=== PATIENT | female | born 1990 | race Caucasian/White ===

== ENCOUNTER 2016-12-04 15:58 | Emergency (ER) | payer OTHER ==
[2016-12-04 16:17] VITALS: BP 118/76; PULSE 75; RESP 18; TEMP 98
[2016-12-04] MEDS ORDERED: diphenhydrAMINE 50 MG CAP PO STA (16:55)
[2016-12-04] MEDS ORDERED: predniSONE 50 MG TAB PO STA (16:55)
--- NOTE | 2016-12-04 16:58 | ED ---
General Adult HPI - General Chief complaint: Extremity Problem,Nontraumatic Stated complaint: arm & chest pain Time Seen by Provider: 12/04/16 16:44 Source: patient, RN notes reviewed Mode of arrival: ambulatory - History of Present Illness Initial comments: Patient is a 26-year-old female who presents emergency room today with a chief complaint of increased pain to the right arm and right side of her chest. She states worse with movements. She does admit that she was at [facility] yesterday for headache. States she had an IV placed in this arm. States woke up this morning she felt fine she took her to school she noticed some redness to the posterior aspect of the right hand. She states this progressed down worse going up right forearm. States she takes infection to her family doctor advised to come to the emergency room to rule out possible blood clot. She states she's feeling this pain going to the right shoulder right side of her chest. She states worse with movements. Denies any other complaints or associated symptoms. Patient denies any recent fever, chills, shortness of breath, back pain, abdominal pain, nausea or vomiting, numbness or tingling, dysuria or hematuria, constipation or diarrhea, headaches or visual changes, or any other complaints. - Related Data Home Medications Medication Instructions Recorded Confirmed Acetaminophen Tab [Tylenol Tab] 650 mg PO Q6H PRN 12/04/16 12/04/16 Verapamil HCl [Verapamil ER] 120 mg PO DAILY@199912/04/16 12/04/16 Previous Rx's Medication Instructions Recorded Cephalexin [Keflex] 500 mg PO Q12HR 10 Days 12/04/16 diphenhydrAMINE [Benadryl] 1 - 2 tab PO Q6HR PRN #30 capsule 12/04/16 Allergies Allergy/AdvReac Type Severity Reaction Status Date / Time amoxicillin Allergy Unknown Verified 12/04/16 16:34 barium sulfate Allergy Rash/Hives Verified 12/04/16 16:34 clindamycin Allergy Anaphylaxis Verified 12/04/16 16:34 doxycycline Allergy Anaphylaxis Verified 12/04/16 16:34 erythromycin base Allergy Anaphylaxis Verified 12/04/16 16:34 [Erythromycin Base] Penicillins Allergy Anaphylaxis Verified 12/04/16 16:34 sulfamethoxazole Allergy Anaphylaxis Verified 12/04/16 16:34 [From Bactrim] trimethoprim [From Bactrim] Allergy Anaphylaxis Verified 12/04/16 16:34 Review of Systems ROS Statement: Those systems with pertinent positive or pertinent negative responses have been documented in the HPI. ROS Other: All systems not noted in ROS Statement are negative. Past Medical History Past Medical History: Asthma, GERD/Reflux, Neurologic Disorder Additional Past Medical History / Comment(s): hiatal hernia, MIGRAINES History of Any Multi-Drug Resistant Organisms: None Reported Past Surgical History: Section, Cholecystectomy, Hernia Repair, Tubal Ligation Additional Past Surgical History / Comment(s): abscess removed from neck Past Anesthesia/Blood Transfusion Reactions: Motion Sickness Additional Past Anesthesia/Blood Transfusion Reaction / Comment(s): STATES SHE WOKE UP DURING CHOLESCYSTECTOMY Past Psychological History: No Psychological Hx Reported Smoking Status: Current every day smoker Past Alcohol Use History: None Reported Past Drug Use History: None Reported - Past Family History Mother Family Medical History: No Reported History Father Additional Family Medical History / Comment(s): multiple sclerosis General Exam - General Exam Comments Initial Comments: General: The patient is awake and alert, in no distress, and does not appear acutely ill. Eye: Pupils are equal, round and reactive to light, extra-ocular movements are intact. No nystagmus. There is normal conjunctiva bilaterally. No signs of icterus. Ears, nose, mouth and throat: There are moist mucous membranes and no oral lesions. Neck: The neck is supple, there is no tenderness or JVD. Cardiovascular: There is a regular rate and rhythm. No murmur, rub or gallop is appreciated. Respiratory: Lungs are clear to auscultation, respirations are non-labored, breath sounds are equal. No wheezes, stridor, rales, or rhonchi. Musculoskeletal: Normal ROM, no tenderness. Strength 5/5. Sensation intact. Pulses equal bilaterally 2+. Neurological: A&O x 3. CN II-XII intact, There are no obvious motor or sensory deficits. Coordination appears grossly intact. Speech is normal. Skin: Rash located to the posterior aspect of right hand and right forearm. Psychiatric: Cooperative, appropriate mood & affect, normal judgment. Course Vital Signs 12/04/16 16:13 Temperature 98 F Pulse Rate 75 Respiratory 18 Rate Blood Pressure 118/76 O2 Sat by Pulse 100 Oximetry Medical Decision Making - Medical Decision Making Patient's ultrasound negative for any evidence of DVT. Patient's chest x-ray reviewed and are unremarkable. Case discussed in detail with attending physician Dr. Castro. Patient will be discharged home advised to continue with Benadryl for possible ALLERGIC reaction or contact dermatitis. Patient will be given a prescription for Keflex which she states she's had in the past. Was discussed about signs symptoms of a cellulitis. Advised to begin antibiotic symptoms increase or worsen. Advised follow-up family doctor over the next 2 days return if any symptoms increase or worsen or for any other concerns. Patient states understanding and is in agreement with this plan. Disposition Clinical Impression: Allergic reaction Disposition: HOME SELF-CARE Condition: Good Instructions: Contact Dermatitis (ED) Additional Instructions: Please use medication as discussed. Please follow-up with family doctor in the next 2 days of symptoms have not improved. Please return to emergency room if the symptoms increase or worsen or for any other concerns. Prescriptions: Cephalexin [Keflex] 500 mg PO Q12HR 10 Days diphenhydrAMINE [Benadryl] 1 - 2 tab PO Q6HR PRN #30 capsule PRN Reason: Allergic Reaction Time of Disposition: 18:37
--- NOTE | 2016-12-04 18:39 | XR ---
EXAMINATION TYPE: XR chest 2V DATE OF EXAM: 12/04/2016 5:57 PM COMPARISON: 10/04/2015 HISTORY: Chest pain TECHNIQUE: Frontal and lateral views of the chest are obtained. FINDINGS: Heart and mediastinum are normal. Lungs are clear. Diaphragm is normal. Bony thorax is int act. IMPRESSION: Normal chest. No change.
--- NOTE | 2016-12-04 18:41 | US ---
EXAMINATION TYPE: US venous doppler duplex UE RT DATE OF EXAM: 12/04/2016 6:15 PM COMPARISON: NONE CLINICAL HISTORY: rash noticed this am on right arm, recent IV site in antecubital fossa yesterday, n o h/o dvt . SIDE PERFORMED: Right Right Arm: Appears negative for DVT There is patency of the jugular, subclavian, axillary, brachial, radial and ulnar veins. There is pat ency of the cephalic and basilic veins. IMPRESSION: Normal exam. No evidence of deep venous thrombosis in the right arm.
== END 2016-12-04 18:47 | disposition home or self-care (01) ==
LOC: EC 15:58
DX: T78.40XA Allergy, unspecified, initial encounter (principal); M79.601 Pain in right arm; X58.XXXA Exposure to other specified factors, initial encounter; Z79.899 Other long term (current) drug therapy; Z88.0 Allergy status to penicillin; Z88.1 Allergy status to other antibiotic agents
CPT/HCPCS: 99285 ×2; 93005; 71020; 93965; 93971; J7512

== ENCOUNTER 2017-03-01 11:49 | Emergency (ER) | payer OTHER ==
[2017-03-01 12:19] VITALS: PULSE 80
[2017-03-01] MEDS ORDERED: HYDROcodone/APAP 7.5-325MG 1 EACH TAB PO ONE (13:00)
--- NOTE | 2017-03-01 13:07 | ED ---
Abdominal Pain HPI - General Chief Complaint: Abdominal Pain Stated Complaint: abd pain,back pain Time Seen by Provider: 03/01/17 12:51 Source: patient, RN notes reviewed Mode of arrival: ambulatory Limitations: no limitations - History of Present Illness Initial Comments: 18-year-old female presents emergency Department with chief complaint of left lower quadrant abdominal pain. Patient states pain has been going on for several years worse recently. Patient states she seen at [facility] and was told that there was nothing wrong and which she did lab work, imaging and urinalysis. Patient states that they only gave her tramadol and states is not helping. She states that she called her CLINICAL CARE MANAGER's office in which her doctor Dr. Ang is not in today advised to come to the hospital here. Patient denies any nausea, vomiting, diarrhea constipation. Denies any hematemesis copremesis. Denies any melena or hematochezia. Patient denies fever, chills, dysuria. Patient states that she's had some vaginal spotting though she is not due for her period. Patient denies any vaginal discharge. Patient states she' s had a prior tubal ligation, hernia surgery, - Related Data Previous Rx's Medication Instructions Recorded Hydrocodone/Acetaminophen [[place] 1 tab PO Q6HR PRN #15 tab 03/01/17 5-325] Allergies Allergy/AdvReac Type Severity Reaction Status Date / Time amoxicillin Allergy Unknown Verified 03/01/17 13:23 barium sulfate Allergy Rash/Hives Verified 03/01/17 13:23 clindamycin Allergy Anaphylaxis Verified 03/01/17 13:23 doxycycline Allergy Anaphylaxis Verified 03/01/17 13:23 erythromycin base Allergy Anaphylaxis Verified 03/01/17 13:23 [Erythromycin Base] Penicillins Allergy Anaphylaxis Verified 03/01/17 13:23 sulfamethoxazole Allergy Anaphylaxis Verified 03/01/17 13:23 [From Bactrim] trimethoprim [From Bactrim] Allergy Anaphylaxis Verified 03/01/17 13:23 Review of Systems ROS Statement: Those systems with pertinent positive or pertinent negative responses have been documented in the HPI. ROS Other: All systems not noted in ROS Statement are negative. Past Medical History Past Medical History: Asthma, GERD/Reflux, Neurologic Disorder Additional Past Medical History / Comment(s): hiatal hernia, MIGRAINES History of Any Multi-Drug Resistant Organisms: None Reported Past Surgical History: Section, Cholecystectomy, Hernia Repair, Tubal Ligation Additional Past Surgical History / Comment(s): abscess removed from neck Past Anesthesia/Blood Transfusion Reactions: Motion Sickness Additional Past Anesthesia/Blood Transfusion Reaction / Comment(s): STATES SHE WOKE UP DURING CHOLESCYSTECTOMY Past Psychological History: No Psychological Hx Reported Smoking Status: Current every day smoker Past Alcohol Use History: None Reported Past Drug Use History: None Reported - Past Family History Mother Family Medical History: No Reported History Father Additional Family Medical History / Comment(s): multiple sclerosis General Exam Limitations: no limitations General appearance: alert, in no apparent distress Respiratory exam: Present: normal lung sounds bilaterally. Absent: respiratory distress, wheezes, rales, rhonchi, stridor Cardiovascular Exam: Present: regular rate, normal rhythm, normal heart sounds. Absent: systolic murmur, diastolic murmur, rubs, gallop, clicks GI/Abdominal exam: Present: soft, tenderness (Mild to moderate left lower quadrant tenderness), normal bowel sounds. Absent: distended, guarding, rebound , rigid External exam: Present: normal external exam, other (Exam performed with EVERETTE Linda) Speculum exam: Present: vaginal discharge (Minimal white discharge) By manual exam: Present: normal by manual exam Back exam: Absent: CVA tenderness (R), CVA tenderness (L) Neurological exam: Present: alert Skin exam: Present: warm, dry, intact, normal color. Absent: rash Course Vital Signs 03/01/17 12:18 Temperature 98.7 F Pulse Rate 80 Respiratory 20 Rate Blood Pressure 132/67 O2 Sat by Pulse 99 Oximetry Medical Decision Making - Medical Decision Making 26-year-old female presented for left lower quadrant abdominal pain. Patient's labs reviewed from previous ER visits showed no acute abnormality. Patient ultrasound does not show any evidence of torsion or ovarian cyst. OB oncologist currently is concerned about possible endometriosis with her. Patient has seen them within last 2 weeks. Patient was referred back to her OB/ [employer]. Patient will be discharged from the emergency department. - Lab Data Lab Results 03/01/17 03/01/17 Range/Units 13:12 13:12 Urine Color Yellow Urine Appearance Cloudy H (Clear) Urine pH 5.5 (5.0-8.0) Ur Specific [place] 1.016 (1.001-1.035) Urine Protein Negative (Negative) Urine Glucose (UA) Negative (Negative) Urine Ketones Negative (Negative) Urine Blood Negative (Negative) Urine Nitrite Negative (Negative) Urine Bilirubin Negative (Negative) Urine Urobilinogen <2.0 (<2.0) mg/dL Ur Leukocyte Esterase Trace H (Negative) Urine RBC 4 (0-5) /hpf Urine WBC 2 (0-5) /hpf Ur Squamous Epith Cells 4 (0-4) /hpf Hyaline Casts 1 (0-2) /lpf Urine Mucus Rare H (None) /hpf Urine HCG, Qual Not Detected (Not Detectd) Disposition Clinical Impression: Pelvic pain, Abdominal pain Disposition: HOME SELF-CARE Condition: Stable Instructions: Pelvic Pain in Women (ED) Additional Instructions: Please return to the Emergency Department if symptoms worsen or any other concerns. Prescriptions: Hydrocodone/Acetaminophen [[place] 5-325] 1 tab PO Q6HR PRN #15 tab PRN Reason: Pain Time of Disposition: 14:57
[2017-03-01 13:29] LABS: Appearance,Urine Cloudy (Clear); Bilirubin,Urine Negative (Negative); Glucose,Urine (UA) Negative (Negative); Ketones,Urine Negative (Negative); Leukocyte Esterase,Urine Trace (Negative); Mucus,Urine Rare /hpf; Nitrite,Urine Negative (Negative); PH, Urine 5.5 (5.0-8.0); Particle Count 7953; Protein,Urine Negative (Negative); RBC,Urine 4 /hpf (0-5); Specific Gravity,Urine 1.016 (1.001-1.035); Squamous Epithelial Cell,Urine 4 /hpf (0-4); UA Billing (MACRO vs. MICRO) MICRO; Urobilinogen,Urine <2.0 mg/dL (<2.0); WBC,Urine 2 /hpf (0-5)
--- NOTE | 2017-03-01 14:26 | US ---
EXAMINATION TYPE: US transvaginal DATE OF EXAM: 03/01/2017 2:15 PM COMPARISON: 01/08/2016 pelvic ultrasound CLINICAL HISTORY: Pain. TECHNIQUE: Transvaginal (TV) pelvic ultrasound Date of LMP: 02/19/2017 EXAM MEASUREMENTS: Uterus: 7.9 x 4.0 x 5.5 cm Endometrial Stripe: 0.5 cm Right Ovary: 2.6 x 1.6 x 2.4 cm Left Ovary: 3.0 x 1.8 x 2.7 cm 1. Uterus: retroflexed 2. Endometrium: wnl 3. Right Ovary: follicle 4. Left Ovary: follicle Spectral, color and waveform doppler imaging shows good arterial and venous flow within the ovaries ; . 5. Bilateral Adnexa: wnl 6. Posterior cul-de-sac: wnl No gross abnormalities identified IMPRESSION: No significant finding is seen to account for patient's symptoms.
[2017-03-01 15:24] VITALS: BP 114/73; RESP 18; TEMP 97.6
== END 2017-03-01 15:23 | disposition home or self-care (01) ==
LOC: EC 11:49
DX: R10.2 Pelvic and perineal pain (principal); M54.9 Dorsalgia, unspecified; Z88.0 Allergy status to penicillin; Z88.1 Allergy status to other antibiotic agents; Z88.2 Allergy status to sulfonamides; Z88.8 Allergy status to other drugs, medicaments and biological substances; F17.200 Nicotine dependence, unspecified, uncomplicated; Z98.51 Tubal ligation status; Z98.890 Other specified postprocedural states; Z90.49 Acquired absence of other specified parts of digestive tract
CPT/HCPCS: 76830; 81001; 81025; 87070; 87205; 87491; 87591; 87808; 93975; 99284

== ENCOUNTER → 2017-06-02 | Outpatient (CLI) | payer OTHER ==
[2017-06-02 09:15] LABS: Basophils % (A) 1 %; CH 28.9; CHCM 33.9; Eosinophils # (A) 0.2 k/uL (0-0.7); Eosinophils % (A) 3 %; HDW 2.58; HGB 13.4 gm/dL (11.4-16.0); Luc # (Auto) 0.25; Luc % (Auto) 4; Lymphocytes % (A) 29 %; MCH 30.1 pg (25.0-35.0); MCHC 35.2 g/dL (31.0-37.0); MCV 85.6 fL (80.0-100.0); Mean Platelet Volume 6.8; Monocytes # (A) 0.3 k/uL (0-1.0); Monocytes % (A) 5 %; Neutrophils # (A) 4.1 k/uL (1.3-7.7); Neutrophils % (A) 59 %; RBC 4.44 m/uL (3.80-5.40); RDW 12.3 % (11.5-15.5)
== END | disposition home or self-care (01) ==
LOC: LABPAT 08:41
PROVIDERS: ATTEND Obstetrics & Gynecology
DX: Z01.812 Encounter for preprocedural laboratory examination (principal)
CPT/HCPCS: 85025

== ENCOUNTER 2017-06-10 06:28 | Day surgery (SDC) | payer OTHER ==
[2017-06-03 09:14] VITALS: BMI 33.6
--- NOTE | 2017-06-09 11:31 | P.HPOB ---
History of Present Illness H&P Date: 06/09/17 Chief Complaint: pelvic pain 26 year old presents for diagnostic laparoscopy due to pelvic pain. The pain is worse with sex and with her period. OCPs did help for a little while but then the pain returned. Review of Systems All systems: negative Constitutional: Denies chills, Denies fever Eyes: denies blurred vision, denies pain Ears, nose, mouth and throat: Denies headache, Denies sore throat Cardiovascular: Denies chest pain, Denies shortness of breath Respiratory: Denies cough Gastrointestinal: Denies abdominal pain, Denies diarrhea, Denies nausea, Denies vomiting Genitourinary: Denies dysuria, Denies hematuria Musculoskeletal: Denies myalgias Integumentary: Denies pruritus, Denies rash Neurological: Denies numbness, Denies weakness Psychiatric: Denies anxiety, Denies depression Endocrine: Denies fatigue, Denies weight change Past Medical History Past Medical History: Asthma, Neurologic Disorder Additional Past Medical History / Comment(s): MIGRAINES History of Any Multi-Drug Resistant Organisms: None Reported Past Surgical History: Section, Cholecystectomy, Hernia Repair, Tubal Ligation Additional Past Surgical History / Comment(s): abscess removed from neck, sonu fundiplication Past Anesthesia/Blood Transfusion Reactions: Motion Sickness Additional Past Anesthesia/Blood Transfusion Reaction / Comment(s): STATES SHE WOKE UP DURING CHOLESCYSTECTOMY Smoking Status: Current every day smoker - Past Family History Mother Family Medical History: No Reported History Father Additional Family Medical History / Comment(s): multiple sclerosis Medications and Allergies Home Medications Medication Instructions Recorded Confirmed Type Albuterol Inhaler [Ventolin Hfa 1 - 2 puff INHALATION Q6HR PRN 06/03/17 History Inhaler] Allergies Allergy/AdvReac Type Severity Reaction Status Date / Time amoxicillin Allergy Unknown Verified 06/03/17 08:50 barium sulfate Allergy Rash/Hives Verified 06/03/17 08:50 clindamycin Allergy Anaphylaxis Verified 06/03/17 08:50 doxycycline Allergy Anaphylaxis Verified 06/03/17 08:50 erythromycin base Allergy Anaphylaxis Verified 06/03/17 08:50 [Erythromycin Base] Penicillins Allergy Anaphylaxis Verified 06/03/17 08:50 Sulfa (Sulfonamide Allergy Anaphylaxis Verified 06/03/17 08:54 Antibiotics) sulfamethoxazole Allergy Anaphylaxis Verified 06/03/17 08:50 [From Bactrim] trimethoprim [From Bactrim] Allergy Anaphylaxis Verified 06/03/17 08:50 Exam Osteopathic Statement: *. No significant issues noted on an osteopathic structural exam other than those noted in the History and Physical/Consult. Heart: RRR Lungs: CTAB Abdomen: soft, nontender Extremeties: neg george's Assessment and Plan (1) Pelvic pain Status: Acute Plan: 1. diagnostic laparoscopy
[~2017-06-10 06:28] MED LIST: DEXAMETHASONE SOD PHOSPHATE 10 MG/ML 1 ML VIAL IV ONE; LACTATED RINGERS 1,000 ML IV SCH; LIDOCAINE 1% 20 ML VIAL (10MG/ML) FOR IV START INTRADERMA PRN; ONDANSETRON 4 MG/2 ML VIAL IVP ONE; Pre Op ABX Message 1 EACH MISC MISCELLANE ONE; SCOPOLAMINE 1.5MG/72HR PATCH TRANSDERM ONE
[2017-06-10] MEDS ORDERED: GLYCOPYRROLATE 0.2 MG/ML 2 ML VIAL ONE (07:29)
[2017-06-10] MEDS ORDERED: PROPOFOL 10 MG/ML 20 ML VIAL IV ONE (07:29)
[2017-06-10] MEDS ORDERED: MIDAZOLAM 2 MG/2 ML VIAL ONE (07:29)
[2017-06-10] MEDS ORDERED: ROCURONIUM BROMIDE 10 MG/ML 10 ML VIAL IV ONE (07:29)
[2017-06-10] MEDS ORDERED: fentaNYL (PF) 50 MCG/ML 2 ML AMP ONE (07:29)
[2017-06-10] MEDS ORDERED: ePHEDrine 50 MG/ML 1 ML AMP ONE (07:29)
[2017-06-10] MEDS ORDERED: LIDOCAINE 1% INJ 10MG/ML (20 ML MDV) ONE (07:29)
[2017-06-10] MEDS ORDERED: NEOSTIGMINE 1 MG/ML 10 ML VIAL ONE (07:29)
[2017-06-10] MEDS ORDERED: SUCCINYLCHOLINE CHLORIDE 100 MG/5 ML SYR IV ONE (07:29)
[2017-06-10] MEDS ORDERED: BUPIVACAINE (PF) 0.25% 30 ML VIAL SQ ONE ×3 (07:54)
[2017-06-10] MEDS ORDERED: CELLULOSE,OXIDIZED 1 EACH EACH MISCELLANE ONE (08:05)
--- NOTE | 2017-06-10 08:32 | P.OP ---
Date of Procedure: 06/10/17 Preoperative Diagnosis: pelvic pain Postoperative Diagnosis: pelvic pain pelvic adhesions, omental adhesions Procedure(s) Performed: operative laparoscopy with lysis of adhesions and placement of intercede Implants: Anesthesia: ALICIA Surgeon: Emerita Ang Estimated Blood Loss (ml): 5 IV fluids (ml): 500 Urine output (ml): 20 Pathology: none sent Condition: stable Disposition: PACU Indications for Procedure: Operative Findings: Patient had minimal amount of omental adhesions on the left pelvis, she had filmy adhesions surrounding her left ovary and fallopian 2, she had dense adhesions connecting her anterior uterine wall to the anterior pelvic wall. Description of Procedure: Patient is taken the operating room where general anesthesia was obtained without difficulty. She is prepped and draped in normal sterile fashion dorsal lithotomy position, legs placed in the Arvin stirrups. Bladder was drained of all urine. [place] speculum placed in the vagina the anterior lip the cervix was grasped with single-tooth tenaculum. The uterus was sounded to 11 cm. A kroner manipulator was placed. Attention was then turned to the abdomen and gloves were changed. A 10 mm infraumbilical incision was made the scalpel and a 10 mm optical trocar was placed under direct visualization. Survey of the pelvis revealed some omental adhesions to the left pelvic anterior wall, some filmy adhesions around the left ovary and fallopian tube, some filmy and dense adhesions connecting the anterior uterus to the anterior pelvic wall. The right fallopian tube and ovary appeared normal. A 5 mm incision was made in the right side of her abdomen and a [place] LigaSure was introduced. The omental adhesions were taken down first and hemostasis was assured. The filmy adhesions were taken down around the left ovary and fallopian tube. These were easily freed. The filmy adhesions along the right side of the anterior uterus were taken down easily. The more dense adhesions along the left anterior wall of the uterus were started to be taken down using the [place] LigaSure. There is taken down about fpc but to ensure that I did not enter the bladder I stopped there. Interceed was then introduced and placed over the anterior part of the uterus to prevent these adhesions from reoccurring. All instruments removed from the abdomen and vagina. The 10 mm incision was closed first with 0 Vicryl and the fascial layer and 4-0 Vicryl subcuticular fashion. The 5 mm incision was closed with 4-0 Vicryl and a second procedure fashion. Patient tolerated the procedure well, sponge and instrument counts are correct 2 and she was taken to recovery room in stable condition.
[2017-06-10 08:50] VITALS: TEMP 96.8
[2017-06-10] MEDS: HYDROmorphone 1 MG/ML 1 ML SYRINGE IVP PRN ×2 (08:51→08:56)
[2017-06-10] MEDS ORDERED: KETOROLAC 30 MG/ML 1 ML VIAL IVP ONE (08:56)
[2017-06-10] MEDS ORDERED: HYDROcodone/APAP 5-325MG 1 EACH TAB PO ONE (09:54)
[2017-06-10 10:13] VITALS: BP 110/68; PULSE 72; RESP 16
== END 2017-06-10 10:39 | disposition home or self-care (01) ==
LOC: OR 06:28
PROVIDERS: ATTEND Obstetrics & Gynecology
DX: N73.6 Female pelvic peritoneal adhesions (postinfective) (principal); K66.0 Peritoneal adhesions (postprocedural) (postinfection)
CPT/HCPCS: 81025; 49329; J2250; J1100; J2710; J2405; J2001; J3010; J1885; J1170; J0330; J2704

== ENCOUNTER 2017-06-14 09:59 | Emergency (ER) | payer OTHER ==
[2017-06-14 10:07] VITALS: PULSE 83
[2017-06-14] MEDS ORDERED: KETOROLAC 30 MG/ML 1 ML VIAL IVP STA (10:26)
[2017-06-14 11:14] LABS: Basophils % (A) 0 %; CH 29.1; CHCM 34.1; Eosinophils # (A) 0.3 k/uL (0-0.7); Eosinophils % (A) 4 %; HCT 39.5 % (34.0-46.0); HDW 2.48; HGB 13.7 gm/dL (11.4-16.0); Luc # (Auto) 0.17; Luc % (Auto) 2; Lymphocytes % (A) 25 %; MCH 29.8 pg (25.0-35.0); MCHC 34.8 g/dL (31.0-37.0); MCV 85.6 fL (80.0-100.0); Mean Platelet Volume 6.7; Monocytes # (A) 0.4 k/uL (0-1.0); Monocytes % (A) 4 %; Neutrophils # (A) 5.2 k/uL (1.3-7.7); Neutrophils % (A) 65 %; RBC 4.62 m/uL (3.80-5.40); RDW 12.5 % (11.5-15.5); WBC 8.1 k/uL (3.8-10.6); WBC (Perox) 8.27
[2017-06-14 11:22] LABS: Appearance,Urine Clear (Clear); Bilirubin,Urine Negative (Negative); Glucose,Urine (UA) Negative (Negative); Ketones,Urine Negative (Negative); Leukocyte Esterase,Urine Trace (Negative); Nitrite,Urine Negative (Negative); Particle Count 2026; Protein,Urine Negative (Negative); RBC,Urine 2 /hpf (0-5); Specific Gravity,Urine 1.013 (1.001-1.035); Squamous Epithelial Cell,Urine 5 /hpf (0-4); UA Billing (MACRO vs. MICRO) MICRO; Urobilinogen,Urine <2.0 mg/dL (<2.0); WBC,Urine 3 /hpf (0-5)
[2017-06-14] MEDS ORDERED: ONDANSETRON 4 MG/2 ML VIAL IVP STA (11:24)
[2017-06-14 11:26] LABS: ALT 33 U/L (9-52); AST 23 U/L (14-36); Alkaline Phosphatase 68 U/L (38-126); Amylase 31 U/L (30-110); Anion Gap 6 mmol/L; Blood Urea Nitrogen 9 mg/dL (7-17); Calcium 9.3 mg/dL (8.4-10.2); Carbon Dioxide 25 mmol/L (22-30); Chloride 108 mmol/L (98-107); Glucose 80 mg/dL (74-99); Non-African American GFR(MDRD) >60 (>60 ml/min/1.73 sqM); Potassium 3.9 mmol/L (3.5-5.1); Sodium 139 mmol/L (137-145); Total Bilirubin 0.3 mg/dL (0.2-1.3); Total Protein 6.4 g/dL (6.3-8.2)
[2017-06-14 11:28] VITALS: BP 115/71; RESP 16; TEMP 98.4
--- NOTE | 2017-06-14 11:52 | XR ---
EXAMINATION TYPE: XR chest 2V DATE OF EXAM: 06/14/2017 COMPARISON: 12/04/2016 TECHNIQUE: PA and lateral views submitted. HISTORY: Pain FINDINGS: The lungs are clear and there is no pneumothorax, pleural effusion, or focal pneumonia. Surgical cl ips in the gallbladder fossa. No overt failure. IMPRESSION: 1. No acute process.
--- NOTE | 2017-06-14 13:45 | ED ---
General Adult HPI - General Chief complaint: Abdominal Pain Stated complaint: post op complications Time Seen by Provider: 06/14/17 10:25 Source: patient, RN notes reviewed, old records reviewed Mode of arrival: wheelchair - History of Present Illness Initial comments: 26 yo female presenting with chief complaint of sore throat, right ear pain, and generalized abdominal pain. Patient is 4 days postop laparoscopy with lysis of adhesions. Patient states she's had a sore throat, fever of 101 last night and chills. She denies vomiting or diarrhea. States she's had some mild nausea. Denies rhinorrhea, denies vaginal discharge, denies dysuria or urinary frequency, denies cough. States she's had a sore throat and right ear pain. Patient is currently taking [place] 5 mg every 6 hours with some residual pain between doses. - Related Data Home Medications Medication Instructions Recorded Confirmed Albuterol Inhaler [Ventolin Hfa 1 - 2 puff INHALATION Q6HR PRN 06/03/17 06/14/17 Inhaler] Previous Rx's Medication Instructions Recorded HYDROcodone/APAP 5-325MG [[place] 1 - 2 tab PO Q6HR PRN #30 tab 06/10/17 5-325] Ibuprofen [Motrin] 600 mg PO Q6HR PRN #30 tab 06/10/17 HYDROcodone/APAP 5-325MG [[place] 1 tab PO Q4HR PRN #24 tab 06/14/17 5-325] Allergies Allergy/AdvReac Type Severity Reaction Status Date / Time amoxicillin Allergy Unknown Verified 06/14/17 10:26 barium sulfate Allergy Rash/Hives Verified 06/14/17 10:26 clindamycin Allergy Anaphylaxis Verified 06/14/17 10:26 doxycycline Allergy Anaphylaxis Verified 06/14/17 10:26 erythromycin base Allergy Anaphylaxis Verified 06/14/17 10:26 [Erythromycin Base] Penicillins Allergy Anaphylaxis Verified 06/14/17 10:26 Sulfa (Sulfonamide Allergy Anaphylaxis Verified 06/14/17 10:26 Antibiotics) sulfamethoxazole Allergy Anaphylaxis Verified 06/14/17 10:26 [From Bactrim] trimethoprim [From Bactrim] Allergy Anaphylaxis Verified 06/14/17 10:26 Review of Systems ROS Statement: Those systems with pertinent positive or pertinent negative responses have been documented in the HPI. ROS Other: All systems not noted in ROS Statement are negative. ENT: Reports: throat pain Respiratory: Denies: cough Past Medical History Past Medical History: Asthma, GERD/Reflux, Neurologic Disorder Additional Past Medical History / Comment(s): hiatal hernia, MIGRAINES History of Any Multi-Drug Resistant Organisms: None Reported Past Surgical History: Section, Cholecystectomy, Hernia Repair, Tubal Ligation Additional Past Surgical History / Comment(s): abscess removed from neck Past Anesthesia/Blood Transfusion Reactions: Motion Sickness Additional Past Anesthesia/Blood Transfusion Reaction / Comment(s): STATES SHE WOKE UP DURING CHOLESCYSTECTOMY Past Psychological History: No Psychological Hx Reported Smoking Status: Current every day smoker - Past Family History Mother Family Medical History: No Reported History Father Additional Family Medical History / Comment(s): multiple sclerosis General Exam Limitations: no limitations General appearance: alert, in no apparent distress Head exam: Present: atraumatic, normocephalic Eye exam: Present: normal appearance, PERRL ENT exam: Present: normal exam, mucous membranes moist, other (ERYTHEMA, NO TONSILLAR SWELLING OR EXUDATE.) Neck exam: Present: normal inspection. Absent: meningismus Respiratory exam: Present: normal lung sounds bilaterally. Absent: respiratory distress Cardiovascular Exam: Present: regular rate, normal rhythm GI/Abdominal exam: Present: soft, tenderness (Generalized minimal tenderness to palpation, surgical incisions are clean dry and intact.). Absent: guarding, rebound, rigid Extremities exam: Present: normal inspection, normal capillary refill Back exam: Present: normal inspection. Absent: CVA tenderness (R), CVA tenderness (L) Neurological exam: Present: alert, oriented X3 Psychiatric exam: Present: normal affect, normal mood Skin exam: Present: warm, dry Course Vital Signs 06/14/17 06/14/17 10:02 11:26 Temperature 97.4 F L 98.4 F Pulse Rate 83 Respiratory 17 16 Rate Blood Pressure 116/79 115/71 O2 Sat by Pulse 100 Oximetry Medical Decision Making - Medical Decision Making 20 female presenting with generalized abdominal pain status post laparoscopy with lysis of adhesions and complaint of fever chills sore throat and right ear pain. Patient states her abdominal pain has been constant postoperatively with no changes. She has a one-day history of right ear pain and sore throat. Patient also fever of 101 last night per chest x-ray was obtained, no signs of focal infection, urinalysis is negative for infection laboratory studies include a CBC and CMP are unremarkable. Patient likely has viral URI. Case is discussed with her surgeon given her recent operation, no additional workup needed at this time. Patient will follow-up with both her primary care physician and her AUTOMATION CONTROL TECHNICIAN in the next several days. Diagnosis: Viral URI, normal postoperative pain. - Lab Data Result diagrams: 06/14/17 10:50 06/14/17 10:50 Lab Results 06/14/17 06/14/17 06/14/17 Range/Units 10:50 10:50 10:55 WBC 8.1 (3.8-10.6) k/uL RBC 4.62 (3.80-5.40) m/uL Hgb 13.7 (11.4-16.0) gm/dL Hct 39.5 (34.0-46.0) % MCV 85.6 (80.0-100.0) fL MCH 29.8 (25.0-35.0) pg MCHC 34.8 (31.0-37.0) g/dL RDW 12.5 (11.5-15.5) % Plt Count 282 (150-450) k/uL Neutrophils % 65 % Lymphocytes % 25 % Monocytes % 4 % Eosinophils % 4 % Basophils % 0 % Neutrophils # 5.2 (1.3-7.7) k/uL Lymphocytes # 2.0 (1.0-4.8) k/uL Monocytes # 0.4 (0-1.0) k/uL Eosinophils # 0.3 (0-0.7) k/uL Basophils # 0.0 (0-0.2) k/uL Sodium 139 (137-145) mmol/L Potassium 3.9 (3.5-5.1) mmol/L Chloride 108 H (98-107) mmol/L Carbon Dioxide 25 (22-30) mmol/L Anion Gap 6 mmol/L BUN 9 (7-17) mg/dL Creatinine 0.77 (0.52-1.04) mg/dL Est GFR (MDRD) Af Amer >60 (>60 ml/min/1.73 sqM) Est GFR (MDRD) Non-Af >60 (>60 ml/min/1.73 sqM) Glucose 80 (74-99) mg/dL Calcium 9.3 (8.4-10.2) mg/dL Total Bilirubin 0.3 (0.2-1.3) mg/dL AST 23 (14-36) U/L ALT 33 (9-52) U/L Alkaline Phosphatase 68 (38-126) U/L Total Protein 6.4 (6.3-8.2) g/dL Albumin 3.7 (3.5-5.0) g/dL Amylase 31 (30-110) U/L Lipase 33 (23-300) U/L Urine Color Yellow Urine Appearance Clear (Clear) Urine pH 7.0 (5.0-8.0) Ur Specific [place] 1.013 (1.001-1.035) Urine Protein Negative (Negative) Urine Glucose (UA) Negative (Negative) Urine Ketones Negative (Negative) Urine Blood Small H (Negative) Urine Nitrite Negative (Negative) Urine Bilirubin Negative (Negative) Urine Urobilinogen <2.0 (<2.0) mg/dL Ur Leukocyte Esterase Trace H (Negative) Urine RBC 2 (0-5) /hpf Urine WBC 3 (0-5) /hpf Ur Squamous Epith Cells 5 H (0-4) /hpf Urine HCG, Qual (Not Detectd) 06/14/17 Range/Units 10:55 WBC (3.8-10.6) k/uL RBC (3.80-5.40) m/uL Hgb (11.4-16.0) gm/dL Hct (34.0-46.0) % MCV (80.0-100.0) fL MCH (25.0-35.0) pg MCHC (31.0-37.0) g/dL RDW (11.5-15.5) % Plt Count (150-450) k/uL Neutrophils % % Lymphocytes % % Monocytes % % Eosinophils % % Basophils % % Neutrophils # (1.3-7.7) k/uL Lymphocytes # (1.0-4.8) k/uL Monocytes # (0-1.0) k/uL Eosinophils # (0-0.7) k/uL Basophils # (0-0.2) k/uL Sodium (137-145) mmol/L Potassium (3.5-5.1) mmol/L Chloride (98-107) mmol/L Carbon Dioxide (22-30) mmol/L Anion Gap mmol/L BUN (7-17) mg/dL Creatinine (0.52-1.04) mg/dL Est GFR (MDRD) Af Amer (>60 ml/min/1.73 sqM) Est GFR (MDRD) Non-Af (>60 ml/min/1.73 sqM) Glucose (74-99) mg/dL Calcium (8.4-10.2) mg/dL Total Bilirubin (0.2-1.3) mg/dL AST (14-36) U/L ALT (9-52) U/L Alkaline Phosphatase (38-126) U/L Total Protein (6.3-8.2) g/dL Albumin (3.5-5.0) g/dL Amylase (30-110) U/L Lipase (23-300) U/L Urine Color Urine Appearance (Clear) Urine pH (5.0-8.0) Ur Specific [place] (1.001-1.035) Urine Protein (Negative) Urine Glucose (UA) (Negative) Urine Ketones (Negative) Urine Blood (Negative) Urine Nitrite (Negative) Urine Bilirubin (Negative) Urine Urobilinogen (<2.0) mg/dL Ur Leukocyte Esterase (Negative) Urine RBC (0-5) /hpf Urine WBC (0-5) /hpf Ur Squamous Epith Cells (0-4) /hpf Urine HCG, Qual Not Detected (Not Detectd) Disposition Clinical Impression: Viral upper respiratory illness, Medication refill Clinical Impression: (Ruled Out): Medication refused Disposition: HOME SELF-CARE Condition: Good Prescriptions: HYDROcodone/APAP 5-325MG [[place] 5-325] 1 tab PO Q4HR PRN #24 tab PRN Reason: Pain Referrals: Edi Pitts DO [Primary Care Provider] - 1-2 days
== END 2017-06-14 14:04 | disposition home or self-care (01) ==
LOC: EC 09:59
DX: J06.9 Acute upper respiratory infection, unspecified (principal); Z76.0 Encounter for issue of repeat prescription; R10.84 Generalized abdominal pain; R11.0 Nausea; F17.200 Nicotine dependence, unspecified, uncomplicated; Z90.49 Acquired absence of other specified parts of digestive tract; Z98.890 Other specified postprocedural states; Z88.0 Allergy status to penicillin; Z88.1 Allergy status to other antibiotic agents; Z88.2 Allergy status to sulfonamides; Z88.8 Allergy status to other drugs, medicaments and biological substances
CPT/HCPCS: 99284; 96374; 96375; 36415; 80053; 82150; 83690; 85025; 81001; 81025; 87086; 71020; J2405; J1885

== ENCOUNTER 2017-08-04 15:47 | Emergency (ER) | payer OTHER ==
[2017-08-04 15:52] VITALS: RESP 18
--- NOTE | 2017-08-04 16:30 | ED ---
Skin/Abscess/FB HPI - General Chief complaint: Skin/Abscess/Foreign Body Stated complaint: skin abscess-sent by Dr. Ang Time Seen by Provider: 08/04/17 15:57 Source: patient, RN notes reviewed, old records reviewed Mode of arrival: ambulatory Limitations: no limitations - History of Present Illness Initial comments: This is a 27 year old femael with CC of suprapubic abscess for 2 days. Patient reports that it is over her incision. Patient reports that she noted the erythema and irritation. Patient reports she went to her OBGYN, Dr. Ang. Patient reports that Dr. Ang sent her here to have it drained by . Patient reports no fever, chills, or any other abscess areas. She reports that she has no history of MRSA. She relates she has had previous abscess before. She also states that she has had allergic reactions to many medication. - Related Data Previous Rx's Medication Instructions Recorded Cephalexin [Keflex] 500 mg PO Q6HR #40 cap 08/04/17 HYDROcodone/APAP 5-325MG [[place] 1 tab PO Q6HR PRN #12 tab 08/04/17 5-325] Allergies Allergy/AdvReac Type Severity Reaction Status Date / Time amoxicillin Allergy Unknown Verified 08/04/17 16:01 barium sulfate Allergy Rash/Hives Verified 08/04/17 16:01 clindamycin Allergy Anaphylaxis Verified 08/04/17 16:01 doxycycline Allergy Anaphylaxis Verified 08/04/17 16:01 erythromycin base Allergy Anaphylaxis Verified 08/04/17 16:01 [Erythromycin Base] Penicillins Allergy Anaphylaxis Verified 08/04/17 16:01 Sulfa (Sulfonamide Allergy Anaphylaxis Verified 08/04/17 16:01 Antibiotics) sulfamethoxazole Allergy Anaphylaxis Verified 08/04/17 16:01 [From Bactrim] trimethoprim [From Bactrim] Allergy Anaphylaxis Verified 08/04/17 16:01 Review of Systems ROS Statement: Those systems with pertinent positive or pertinent negative responses have been documented in the HPI. ROS Other: All systems not noted in ROS Statement are negative. Past Medical History Past Medical History: Asthma, GERD/Reflux, Neurologic Disorder Additional Past Medical History / Comment(s): hiatal hernia, MIGRAINES History of Any Multi-Drug Resistant Organisms: None Reported Past Surgical History: Section, Cholecystectomy, Hernia Repair, Tubal Ligation Additional Past Surgical History / Comment(s): abscess removed from neck Past Anesthesia/Blood Transfusion Reactions: Motion Sickness Additional Past Anesthesia/Blood Transfusion Reaction / Comment(s): STATES SHE WOKE UP DURING CHOLESCYSTECTOMY Past Psychological History: No Psychological Hx Reported Smoking Status: Current every day smoker Past Alcohol Use History: None Reported Past Drug Use History: None Reported - Past Family History Mother Family Medical History: No Reported History Father Additional Family Medical History / Comment(s): multiple sclerosis General Exam - General Exam Comments Initial Comments: 27 year old female. No acute distress. Limitations: no limitations General appearance: alert, in no apparent distress Head exam: Present: atraumatic, normocephalic, normal inspection Eye exam: Present: normal appearance, PERRL, EOMI. Absent: scleral icterus, conjunctival injection, periorbital swelling ENT exam: Present: normal exam, mucous membranes moist Neck exam: Present: normal inspection. Absent: tenderness, meningismus, lymphadenopathy Respiratory exam: Present: normal lung sounds bilaterally. Absent: respiratory distress, wheezes, rales, rhonchi, stridor Cardiovascular Exam: Present: regular rate, normal rhythm, normal heart sounds. Absent: systolic murmur, diastolic murmur, rubs, gallop, clicks GI/Abdominal exam: Present: soft, normal bowel sounds. Absent: distended, tenderness, guarding, rebound, rigid Extremities exam: Present: normal inspection, full ROM, normal capillary refill. Absent: tenderness, pedal edema, joint swelling, calf tenderness Back exam: Present: normal inspection Neurological exam: Present: alert, oriented X3, CN II-XII intact Psychiatric exam: Present: normal affect, normal mood Skin exam: Present: warm, dry, intact, normal color, erythema (erythematous superficial 3cm abscess over c section incision. ). Absent: rash Course Vital Signs 08/04/17 08/04/17 15:50 17:14 Temperature 98.9 F 97.6 F Pulse Rate 95 72 Respiratory 18 18 Rate Blood Pressure 121/84 121/68 O2 Sat by Pulse 99 99 Oximetry Procedures - Incision & Drainage Consent Obtained: verbal consent Site: vulva/vagina (suprapubic area over C section) Size (cm): 3 Anesthetic Used: lidocaine 1% Amount (mLs): 3 I&D Cleaning Method: Iodine Sterile Field Used?: Yes Scalpel Used: #11 I&D Drainage Obtained: Pus, Blood Packing: Iodoform Culture Obtained?: Yes Patient Tolerated Procedure: well, no complications Medical Decision Making - Medical Decision Making This is a 27 year old femael with CC of suprapubic abscess for 2 days. Patient reports that it is over her incision. Patient reports that she noted the erythema and irritation. Patient reports she went to her OBGYN, Dr. Ang. Patient reports that Dr. Ang sent her here to have it drained by . Patient has a abscess on the suprapubic region, measuring 3 cm. Bedside US preformed, no significant tracking noted. Abscess is superficial. Patient reports that she is comfortable having the abscess drained by myself in the ED. Patient wound cleaned and anesthestized. Small incision made, and pus drained. Patient was then packed with iodoform. Patient has no known allergy to cephalosporin, and patient has previously been on Keflex from medical records.. Patient will be started on keflex. Discussed removal of packing in 2 days. Discussed follow up with PCP or return to ED. Return parameters discussed. Disposition Clinical Impression: Suprapubic abscess Disposition: HOME SELF-CARE Condition: Good Instructions: Abscess (ED) Additional Instructions: Patient is to follow-up with her primary care provider in 2 days to have the packing removed. Or return to emergency department if he cannot follow up with your PCP. Take antibiotics as prescribed. Take with Benadryl as he previously had done. Return to the emergency department if any alarming signs or symptoms occur. Prescriptions: Cephalexin [Keflex] 500 mg PO Q6HR #40 cap HYDROcodone/APAP 5-325MG [[place] 5-325] 1 tab PO Q6HR PRN #12 tab PRN Reason: Pain Referrals: Edi Pitts DO [Primary Care Provider] - 1-2 days Time of Disposition: 17:02
[2017-08-04] MEDS ORDERED: CEPHALEXIN 500MG STARTER PACK 4 CAP BTL PO STA (17:01)
[2017-08-04] MEDS ORDERED: diphenhydrAMINE 25 MG CAP PO STA (17:01)
[2017-08-04] MEDS ORDERED: ACETAMINOPHEN TAB 325 MG TAB PO STA (17:12)
[2017-08-04] MEDS ORDERED: ACET/COD 300 MG/30 MG STARTER PACK 6 TAB BTL PO STA (17:13)
[2017-08-04 17:15] VITALS: BP 121/68; PULSE 72; TEMP 97.6
== END 2017-08-04 17:21 | disposition home or self-care (01) ==
LOC: EC 15:47
DX: L02.211 Cutaneous abscess of abdominal wall (principal); F17.200 Nicotine dependence, unspecified, uncomplicated; Z88.0 Allergy status to penicillin; Z88.1 Allergy status to other antibiotic agents; Z88.2 Allergy status to sulfonamides; Z91.048 Other nonmedicinal substance allergy status; Z98.890 Other specified postprocedural states
CPT/HCPCS: 10060; 87070; 87205; 99284

== ENCOUNTER 2017-08-05 17:46 | Emergency (ER) | payer OTHER ==
[2017-08-05 17:53] VITALS: TEMP 97.4
[2017-08-05 19:38] VITALS: RESP 16
[2017-08-05 19:51] LABS: Basophils % (A) 0 %; CH 29.2; CHCM 34.3; Eosinophils # (A) 0.2 k/uL (0-0.7); Eosinophils % (A) 2 %; HCT 41.1 % (34.0-46.0); HDW 2.51; HGB 14.1 gm/dL (11.4-16.0); Luc # (Auto) 0.29; Luc % (Auto) 3; Lymphocytes % (A) 21 %; MCH 29.4 pg (25.0-35.0); MCHC 34.4 g/dL (31.0-37.0); MCV 85.6 fL (80.0-100.0); Mean Platelet Volume 6.9; Monocytes # (A) 0.6 k/uL (0-1.0); Monocytes % (A) 6 %; Neutrophils # (A) 6.7 k/uL (1.3-7.7); Neutrophils % (A) 68 %; RDW 12.6 % (11.5-15.5); WBC 9.9 k/uL (3.8-10.6); WBC (Perox) 9.85
[2017-08-05 20:00] LABS: Anion Gap 10 mmol/L; Blood Urea Nitrogen 7 mg/dL (7-17); Calcium 9.8 mg/dL (8.4-10.2); Carbon Dioxide 22 mmol/L (22-30); Chloride 106 mmol/L (98-107); Glucose 93 mg/dL (74-99); Non-African American GFR(MDRD) >60 (>60 ml/min/1.73 sqM); Potassium 3.8 mmol/L (3.5-5.1); Sodium 138 mmol/L (137-145)
[2017-08-05] MEDS ORDERED: KETOROLAC 30 MG/ML 1 ML VIAL IVP STA (20:08)
[2017-08-05] MEDS ORDERED: diphenhydrAMINE 50 MG/ML 1 ML VIAL IVP STA (20:08)
--- NOTE | 2017-08-05 20:14 | ED ---
General Adult HPI - General Chief complaint: Allergic Reaction Stated complaint: poss allergic reaction to antibiotic Time Seen by Provider: 08/05/17 19:20 Source: patient Mode of arrival: ambulatory Limitations: no limitations - History of Present Illness Initial comments: Patient is a 27-year-old female who presents to the emergency department with concern of possible ALLERGIC reaction. Patient was seen and evaluated in our emergency department yesterday, she had a small abscess in the suprapubic area that was incised and drained and she was subsequently started on Keflex for the surrounding cellulitis. Patient reports that she took 3 doses of Keflex and subsequently developed itchiness over her entire body and diffuse chest pain. Patient states that this reaction is identical to her ALLERGIC reaction to doxycycline which she had in the past. She reports all of her ALLERGIC reactions occur after the third dose of the medication. Patient denies any tightness in her chest, any wheezing or stridor. She reports that her chest feels painful and she experiences pain with deep inspiration. Patient denies any nausea, vomiting or any rash though she does feel her entire body is itchy. Patient reports she took one Benadryl prior to coming to the emergency department. - Related Data Previous Rx's Medication Instructions Recorded HYDROcodone/APAP 5-325MG [[place] 1 tab PO Q6HR PRN #12 tab 08/04/17 5-325] Allergies Allergy/AdvReac Type Severity Reaction Status Date / Time amoxicillin Allergy Unknown Verified 08/05/17 19:31 barium sulfate Allergy Rash/Hives Verified 08/05/17 19:31 cephalexin [From Keflex] Allergy Rash/Hives Verified 08/05/17 19:31 clindamycin Allergy Anaphylaxis Verified 08/05/17 19:31 doxycycline Allergy Anaphylaxis Verified 08/05/17 19:31 erythromycin base Allergy Anaphylaxis Verified 08/05/17 19:31 [Erythromycin Base] Penicillins Allergy Anaphylaxis Verified 08/05/17 19:31 Sulfa (Sulfonamide Allergy Anaphylaxis Verified 08/05/17 19:31 Antibiotics) sulfamethoxazole Allergy Anaphylaxis Verified 08/05/17 19:31 [From Bactrim] trimethoprim [From Bactrim] Allergy Anaphylaxis Verified 08/05/17 19:31 Review of Systems ROS Statement: Those systems with pertinent positive or pertinent negative responses have been documented in the HPI. ROS Other: All systems not noted in ROS Statement are negative. Constitutional: Denies: fever, chills ENT: Denies: throat pain Respiratory: Denies: cough, wheezes Cardiovascular: Reports: chest pain Endocrine: Denies: fatigue Gastrointestinal: Denies: abdominal pain, nausea, vomiting Genitourinary: Denies: urgency, dysuria Skin: Reports: lesions (open abscess on suprapubic region, packing in place, minimal drainage) Psychiatric: Reports: anxiety Past Medical History Past Medical History: Asthma, GERD/Reflux, Neurologic Disorder Additional Past Medical History / Comment(s): hiatal hernia, MIGRAINES History of Any Multi-Drug Resistant Organisms: None Reported Past Surgical History: Section, Cholecystectomy, Hernia Repair, Tubal Ligation Additional Past Surgical History / Comment(s): abscess removed from neck endoscope Past Anesthesia/Blood Transfusion Reactions: Motion Sickness Additional Past Anesthesia/Blood Transfusion Reaction / Comment(s): STATES SHE WOKE UP DURING CHOLESCYSTECTOMY Past Psychological History: No Psychological Hx Reported Smoking Status: Current every day smoker Past Alcohol Use History: None Reported Past Drug Use History: None Reported - Past Family History Mother Family Medical History: No Reported History Father Additional Family Medical History / Comment(s): multiple sclerosis General Exam Limitations: no limitations General appearance: alert, in no apparent distress Head exam: Present: atraumatic, normocephalic, normal inspection Eye exam: Present: normal appearance, PERRL, EOMI. Absent: scleral icterus, conjunctival injection, periorbital swelling ENT exam: Present: normal exam, mucous membranes moist Neck exam: Present: normal inspection. Absent: tenderness, meningismus, lymphadenopathy Respiratory exam: Present: normal lung sounds bilaterally. Absent: respiratory distress, wheezes, rales, rhonchi, stridor Cardiovascular Exam: Present: regular rate, normal rhythm, normal heart sounds. Absent: systolic murmur, diastolic murmur, rubs, gallop, clicks GI/Abdominal exam: Present: soft, normal bowel sounds. Absent: distended, tenderness, guarding, rebound, rigid Rectal exam: Present: deferred External exam: Present: other (abscess on right side of mons pubis) Extremities exam: Present: normal inspection, full ROM, normal capillary refill. Absent: tenderness, pedal edema, joint swelling, calf tenderness Neurological exam: Present: alert Psychiatric exam: Present: anxious Skin exam: Present: warm, dry, intact, normal color. Absent: rash Course Vital Signs 08/05/17 08/05/17 08/05/17 17:49 19:37 21:06 Temperature 97.4 F L Pulse Rate 62 62 67 Respiratory 18 16 16 Rate Blood Pressure 127/75 118/70 104/62 O2 Sat by Pulse 100 100 97 Oximetry EKG Findings - EKG Comments: EKG Findings:: EKG time 2100 EKG evaluated 2114 - EKG sinus rate a cardiac, rate 69, AR is 116, QRS 100, QTC 447, there are no acute ST elevations or depressions, noted to have an inverted T-wave in V1 as well as V3. No evidence of acute infarction or ischemia. Medical Decision Making - Medical Decision Making Patient was seen and evaluated, history was obtained from patient and review of medical record Signs were reviewed with no acute abnormalities Physical exam with no evidence of acute ALLERGIC reaction, no rash, no oral swelling, no posterior oropharyngeal edema, no stridor or wheezing Well-healing small abscess with packing still in place. No surrounding cellulitis. I advised the patient is okay for her to discontinue use of antibiotic if she is concerned that she may be ALLERGIC to it. Considering that the patient is complaining of chest pain I will evaluate for causes of chest pain including a d-dimer and a troponin Labs were unremarkable Troponin and d-dimer not elevated EKG with no acute findings Chest x-ray with no acute findings Results were discussed with the patient who expressed relief that there were no acute findings on her workup. She asked if this could simply be an ALLERGIC reaction of medication. I advised her that chest pain without shortness of breath, hives, oral pharyngeal swelling or GI disturbance is an atypical ALLERGIC reaction however it is possible. I advised the patient that she should follow up with her PCP as scheduled tomorrow and requests a referral to an erecting crane operator for definitive testing of ALLERGIES. I don't long discussion with the patient regarding her multiple listed ALLERGIES and how this could lead to difficulty in treating any infections in the future. I advised the patient that a follow-up within erecting crane operator or histologic technician to could definitively diagnose her ALLERGIES would likely benefit her in the future. Patient expressed understanding of this. All questions pertaining to care were answered to the best of my ability and the patient was discharged home in stable condition. - Lab Data Result diagrams: 08/05/17 19:35 08/05/17 19:35 Lab Results 08/05/17 08/05/17 08/05/17 Range/Units 19:35 19:35 19:35 WBC 9.9 (3.8-10.6) k/uL RBC 4.80 (3.80-5.40) m/uL Hgb 14.1 (11.4-16.0) gm/dL Hct 41.1 (34.0-46.0) % MCV 85.6 (80.0-100.0) fL MCH 29.4 (25.0-35.0) pg MCHC 34.4 (31.0-37.0) g/dL RDW 12.6 (11.5-15.5) % Plt Count 309 (150-450) k/uL Neutrophils % 68 % Lymphocytes % 21 % Monocytes % 6 % Eosinophils % 2 % Basophils % 0 % Neutrophils # 6.7 (1.3-7.7) k/uL Lymphocytes # 2.0 (1.0-4.8) k/uL Monocytes # 0.6 (0-1.0) k/uL Eosinophils # 0.2 (0-0.7) k/uL Basophils # 0.0 (0-0.2) k/uL PT 10.2 (9.0-12.0) sec INR 1.0 (<1.2) APTT 26.2 (22.0-30.0) sec D-Dimer 0.56 (<0.60) mg/L FEU Sodium 138 (137-145) mmol/L Potassium 3.8 (3.5-5.1) mmol/L Chloride 106 (98-107) mmol/L Carbon Dioxide 22 (22-30) mmol/L Anion Gap 10 mmol/L BUN 7 (7-17) mg/dL Creatinine 0.70 (0.52-1.04) mg/dL Est GFR (MDRD) Af Amer >60 (>60 ml/min/1.73 sqM) Est GFR (MDRD) Non-Af >60 (>60 ml/min/1.73 sqM) Glucose 93 (74-99) mg/dL Calcium 9.8 (8.4-10.2) mg/dL Troponin I (0.000-0.034) ng/mL 08/05/17 Range/Units 19:35 WBC (3.8-10.6) k/uL RBC (3.80-5.40) m/uL Hgb (11.4-16.0) gm/dL Hct (34.0-46.0) % MCV (80.0-100.0) fL MCH (25.0-35.0) pg MCHC (31.0-37.0) g/dL RDW (11.5-15.5) % Plt Count (150-450) k/uL Neutrophils % % Lymphocytes % % Monocytes % % Eosinophils % % Basophils % % Neutrophils # (1.3-7.7) k/uL Lymphocytes # (1.0-4.8) k/uL Monocytes # (0-1.0) k/uL Eosinophils # (0-0.7) k/uL Basophils # (0-0.2) k/uL PT (9.0-12.0) sec INR (<1.2) APTT (22.0-30.0) sec D-Dimer (<0.60) mg/L FEU Sodium (137-145) mmol/L Potassium (3.5-5.1) mmol/L Chloride (98-107) mmol/L Carbon Dioxide (22-30) mmol/L Anion Gap mmol/L BUN (7-17) mg/dL Creatinine (0.52-1.04) mg/dL Est GFR (MDRD) Af Amer (>60 ml/min/1.73 sqM) Est GFR (MDRD) Non-Af (>60 ml/min/1.73 sqM) Glucose (74-99) mg/dL Calcium (8.4-10.2) mg/dL Troponin I <0.012 (0.000-0.034) ng/mL Disposition Clinical Impression: Adverse reaction to antibiotic Disposition: HOME SELF-CARE Condition: Good Instructions: Anaphylaxis (ED) Referrals: Edi Pitts DO [Primary Care Provider] - 1-2 days
--- NOTE | 2017-08-05 20:18 | XR ---
EXAMINATION TYPE: XR chest 2V DATE OF EXAM: 08/05/2017 CLINICAL HISTORY: Shortness of breath TECHNIQUE: Frontal and lateral views of the chest are obtained. COMPARISON: 06/14/2017 FINDINGS: There is no focal air space opacity, pleural effusion, or pneumothorax seen. The cardiac silhouette size is within normal limits. The osseous structures are intact. IMPRESSION: No acute cardiopulmonary process.
[2017-08-05 20:29] LABS: Partial Thromboplastin Time 26.2 sec (22.0-30.0); Prothrombin Time 10.2 sec (9.0-12.0)
[2017-08-05 21:07] VITALS: BP 104/62; PULSE 67
== END 2017-08-05 21:07 | disposition home or self-care (01) ==
LOC: EC 17:46
DX: R07.9 Chest pain, unspecified (principal); L29.9 Pruritus, unspecified; T36.1X5A Adverse effect of cephalosporins and other beta-lactam antibiotics, initial encounter; F17.200 Nicotine dependence, unspecified, uncomplicated; Z88.0 Allergy status to penicillin; Z88.2 Allergy status to sulfonamides; Z88.8 Allergy status to other drugs, medicaments and biological substances; Z88.1 Allergy status to other antibiotic agents
CPT/HCPCS: 36415; 93005; 85379; 80048; 84484; 85025; 85610; 85730; 71020; 99284; 96374; 96375; J1200; J1885

== ENCOUNTER → 2017-10-15 | Outpatient (CLI) | payer OTHER | END | disposition home or self-care (01) | LOC: LABWHC1 16:20 | PROVIDERS: ATTEND Physician Assistant | DX: Z01.810 Encounter for preprocedural cardiovascular examination (principal) | CPT/HCPCS: 36415; 93005 ==

== ENCOUNTER → 2017-10-22 | Outpatient (CLI) | payer OTHER ==
[2017-10-22 10:24] LABS: Basophils % (A) 1 %; CH 29.1; CHCM 33.7; Eosinophils # (A) 0.2 k/uL (0-0.7); Eosinophils % (A) 3 %; HCT 39.7 % (34.0-46.0); HDW 2.51; HGB 13.2 gm/dL (11.4-16.0); Luc # (Auto) 0.29; Luc % (Auto) 4; Lymphocytes # (A) 1.9 k/uL (1.0-4.8); Lymphocytes % (A) 27 %; MCH 28.8 pg (25.0-35.0); MCHC 33.2 g/dL (31.0-37.0); MCV 86.7 fL (80.0-100.0); Mean Platelet Volume 6.7; Monocytes # (A) 0.3 k/uL (0-1.0); Monocytes % (A) 5 %; Neutrophils # (A) 4.1 k/uL (1.3-7.7); Neutrophils % (A) 60 %; RBC 4.57 m/uL (3.80-5.40); RDW 12.3 % (11.5-15.5); WBC 6.8 k/uL (3.8-10.6); WBC (Perox) 6.95
[2017-10-22 10:36] LABS: Anion Gap 7 mmol/L; Blood Urea Nitrogen 9 mg/dL (7-17); Calcium 9.6 mg/dL (8.4-10.2); Carbon Dioxide 26 mmol/L (22-30); Chloride 108 mmol/L (98-107); Glucose 112 mg/dL (74-99); Non-African American GFR(MDRD) >60 (>60 ml/min/1.73 sqM); Potassium 3.8 mmol/L (3.5-5.1); Sodium 141 mmol/L (137-145)
== END | disposition home or self-care (01) ==
LOC: LABWHC1 09:52
PROVIDERS: ATTEND Obstetrics & Gynecology
DX: Z01.812 Encounter for preprocedural laboratory examination (principal)
CPT/HCPCS: 36415; 80048; 85025

== ENCOUNTER 2018-05-18 08:22 | Emergency (ER) | payer OTHER ==
[2018-05-18 08:28] VITALS: RESP 16
[2018-05-18] MEDS ORDERED: SODIUM CHLORIDE 0.9% 1,000 ML IV STA (08:40)
[2018-05-18] MEDS ORDERED: KETOROLAC 30 MG/ML 1 ML VIAL IVP STA (08:40)
[2018-05-18] MEDS ORDERED: diphenhydrAMINE 50 MG/ML 1 ML VIAL IVP STA (08:40)
[2018-05-18] MEDS ORDERED: METOCLOPRAMIDE 5 MG/ML 2 ML VIAL IVP STA (08:40)
[2018-05-18] MEDS ORDERED: ORPHENADRINE 30 MG/ML 2 ML VIAL IVP STA (08:41)
--- NOTE | 2018-05-18 08:46 | ED ---
General Adult HPI - General Chief complaint: Neck Pain/Injury Stated complaint: BACK, NECK AND ABDOMINAL PAIN Time Seen by Provider: 05/18/18 08:31 Source: patient, RN notes reviewed, old records reviewed Mode of arrival: ambulatory Limitations: no limitations - History of Present Illness Initial comments: This patient's a 27-year-old female chief complaint of left-sided lower back pain starting yesterday evening she also complains of neck pain, and headache. She reports that her back feels very tight. She is moving currently and lifting a lot of boxes. She denies any specific trauma to the back. She reports she has felt feverish and chilled. Also feeling nauseated due to the pain. No history of kidney stones. She denies any vomiting or diarrhea. Patient's had a history of hysterectomy, cholecystectomy, tubal ligation. - Related Data Home Medications Medication Instructions Recorded Confirmed Acetaminophen Tab [Tylenol Tab] 325 - 650 mg PO Q4H 10/25/17 10/28/17 Albuterol Inhaler [Ventolin Hfa 1 - 2 puff INHALATION Q6HR PRN 10/25/17 10/28/17 Inhaler] Omeprazole 20 mg PO DAILY 10/25/17 10/28/17 Previous Rx's Medication Instructions Recorded Acetaminophen-Codeine 300-30mg 2 each PO Q6HR PRN #30 tab 10/29/17 [Tylenol w/codeine #3] Ibuprofen [Motrin] 600 mg PO Q6HR PRN #30 tab 10/29/17 Cyclobenzaprine [Flexeril] 10 mg PO TID #12 tab 05/18/18 Dexamethasone 0.75 mg PO DAILY #12 tab 05/18/18 Allergies Allergy/AdvReac Type Severity Reaction Status Date / Time amoxicillin Allergy Anaphylaxis Verified 05/18/18 08:28 barium sulfate Allergy Rash/Hives Verified 05/18/18 08:28 cephalexin [From Keflex] Allergy Anaphylaxis Verified 05/18/18 08:28 clindamycin Allergy Anaphylaxis Verified 05/18/18 08:28 doxycycline Allergy Anaphylaxis Verified 05/18/18 08:28 erythromycin base Allergy Anaphylaxis Verified 05/18/18 08:28 [Erythromycin Base] Penicillins Allergy Anaphylaxis Verified 05/18/18 08:28 Sulfa (Sulfonamide Allergy Anaphylaxis Verified 05/18/18 08:28 Antibiotics) sulfamethoxazole Allergy Anaphylaxis Verified 05/18/18 08:28 [From Bactrim] trimethoprim [From Bactrim] Allergy Anaphylaxis Verified 05/18/18 08:28 Review of Systems ROS Statement: Those systems with pertinent positive or pertinent negative responses have been documented in the HPI. ROS Other: All systems not noted in ROS Statement are negative. Past Medical History Past Medical History: Asthma, GERD/Reflux Additional Past Medical History / Comment(s): hiatal hernia, MIGRAINES, GETS NERVE BLOCK INJECTIONS FOR MIGRAINES History of Any Multi-Drug Resistant Organisms: None Reported Past Surgical History: Section, Cholecystectomy, Hernia Repair, Tubal Ligation Additional Past Surgical History / Comment(s): hiatal hernia repair,benign abscess removed from neck, laproscopy, Past Anesthesia/Blood Transfusion Reactions: Motion Sickness, Postoperative Nausea & Vomiting (PONV) Additional Past Anesthesia/Blood Transfusion Reaction / Comment(s): "dry heaves , states unable to vomit r/t hiatal hernia sx" STATES SHE WOKE UP DURING CHOLESCYSTECTOMY Past Psychological History: No Psychological Hx Reported Smoking Status: Current every day smoker Past Alcohol Use History: None Reported Past Drug Use History: None Reported - Past Family History Mother Family Medical History: No Reported History Father Additional Family Medical History / Comment(s): multiple sclerosis General Exam - General Exam Comments Initial Comments: This patient's a 27-year-old female. Alert and oriented. No significant distress. Limitations: no limitations General appearance: alert, in no apparent distress Head exam: Present: atraumatic, normocephalic, normal inspection Eye exam: Present: normal appearance, PERRL, EOMI. Absent: scleral icterus, conjunctival injection, periorbital swelling ENT exam: Present: normal exam, mucous membranes moist Neck exam: Present: normal inspection, full ROM. Absent: tenderness, meningismus, lymphadenopathy Respiratory exam: Present: normal lung sounds bilaterally. Absent: respiratory distress, wheezes, rales, rhonchi, stridor Cardiovascular Exam: Present: regular rate, normal rhythm, normal heart sounds. Absent: systolic murmur, diastolic murmur, rubs, gallop, clicks GI/Abdominal exam: Present: soft, tenderness (Left CVA tenderness, and thoracic tenderness), normal bowel sounds. Absent: distended, guarding, rebound, rigid Extremities exam: Present: normal inspection, full ROM, normal capillary refill. Absent: tenderness, pedal edema, joint swelling, calf tenderness Back exam: Present: normal inspection Neurological exam: Present: alert, oriented X3, CN II-XII intact Psychiatric exam: Present: normal affect, normal mood Course Vital Signs 05/18/18 05/18/18 08:25 09:05 Temperature 98.3 F 99.2 F Pulse Rate 102 H Respiratory 16 Rate Blood Pressure 128/85 O2 Sat by Pulse 99 Oximetry - Reevaluation(s) Reevaluation #1: 05/18/18 10:58 Patient is reevaluated with chief complaint bed at this time. She reports her headache and neck pain and back pain is diminishing. Patient states she feels much better at this time. Medical Decision Making - Medical Decision Making 27-year-old female presents with left-sided lower back pain, neck pain muscle aches and headache. No meningeal signs on exam. She is tender to palpation over the left paraspinal muscles. Patient has no other major symptoms to chew to feel nauseous. She has a history of IBS. Patient's labwork was reviewed and unremarkable. X-ray of the lumbar and cervical and thoracic spine were negative for any acute process. Patient's KUB did show some evidence of localized ileus or enteritis. Patient's and passing gas normally and normal stools. Patient for himself she's no tenderness on exam. I discussed that with her pain is mostly muscle skeletally nature due to heavy lifting from moving. She also seemed to migraine-like symptoms. All of her symptoms resolved after migraine cocktail. Patient was discharged at this time with steroid taper and muscle relaxers. Discussed appropriate PCP follow-up. - Lab Data Result diagrams: 05/18/18 08:50 05/18/18 08:50 Lab Results 05/18/18 05/18/18 05/18/18 Range/Units 08:50 08:50 08:50 WBC 9.2 (3.8-10.6) k/uL RBC 4.78 (3.80-5.40) m/uL Hgb 13.4 (11.4-16.0) gm/dL Hct 40.9 (34.0-46.0) % MCV 85.6 (80.0-100.0) fL MCH 28.2 (25.0-35.0) pg MCHC 32.9 (31.0-37.0) g/dL RDW 12.7 (11.5-15.5) % Plt Count 276 (150-450) k/uL Neutrophils % 84 % Lymphocytes % 9 % Monocytes % 4 % Eosinophils % 2 % Basophils % 0 % Neutrophils # 7.7 (1.3-7.7) k/uL Lymphocytes # 0.8 L (1.0-4.8) k/uL Monocytes # 0.4 (0-1.0) k/uL Eosinophils # 0.2 (0-0.7) k/uL Basophils # 0.0 (0-0.2) k/uL Sodium 136 L (137-145) mmol/L Potassium 4.4 (3.5-5.1) mmol/L Chloride 106 (98-107) mmol/L Carbon Dioxide 21 L (22-30) mmol/L Anion Gap 9 mmol/L BUN 14 (7-17) mg/dL Creatinine 0.70 (0.52-1.04) mg/dL Est GFR (CKD-EPI)AfAm >90 (>60 ml/min/1.73 sqM) Est GFR (CKD-EPI)NonAf >90 (>60 ml/min/1.73 sqM) Glucose 96 (74-99) mg/dL Plasma Lactic Acid Srinivasan 0.9 (0.7-2.0) mmol/L Calcium 9.4 (8.4-10.2) mg/dL Total Bilirubin 0.4 (0.2-1.3) mg/dL AST 24 (14-36) U/L ALT 36 (9-52) U/L Alkaline Phosphatase 65 (38-126) U/L Total Protein 6.9 (6.3-8.2) g/dL Albumin 4.1 (3.5-5.0) g/dL Urine Color Urine Appearance (Clear) Urine pH (5.0-8.0) Ur Specific [place] (1.001-1.035) Urine Protein (Negative) Urine Glucose (UA) (Negative) Urine Ketones (Negative) Urine Blood (Negative) Urine Nitrite (Negative) Urine Bilirubin (Negative) Urine Urobilinogen (<2.0) mg/dL Ur Leukocyte Esterase (Negative) 05/18/18 Range/Units 08:50 WBC (3.8-10.6) k/uL RBC (3.80-5.40) m/uL Hgb (11.4-16.0) gm/dL Hct (34.0-46.0) % MCV (80.0-100.0) fL MCH (25.0-35.0) pg MCHC (31.0-37.0) g/dL RDW (11.5-15.5) % Plt Count (150-450) k/uL Neutrophils % % Lymphocytes % % Monocytes % % Eosinophils % % Basophils % % Neutrophils # (1.3-7.7) k/uL Lymphocytes # (1.0-4.8) k/uL Monocytes # (0-1.0) k/uL Eosinophils # (0-0.7) k/uL Basophils # (0-0.2) k/uL Sodium (137-145) mmol/L Potassium (3.5-5.1) mmol/L Chloride (98-107) mmol/L Carbon Dioxide (22-30) mmol/L Anion Gap mmol/L BUN (7-17) mg/dL Creatinine (0.52-1.04) mg/dL Est GFR (CKD-EPI)AfAm (>60 ml/min/1.73 sqM) Est GFR (CKD-EPI)NonAf (>60 ml/min/1.73 sqM) Glucose (74-99) mg/dL Plasma Lactic Acid Srinivasan (0.7-2.0) mmol/L Calcium (8.4-10.2) mg/dL Total Bilirubin (0.2-1.3) mg/dL AST (14-36) U/L ALT (9-52) U/L Alkaline Phosphatase (38-126) U/L Total Protein (6.3-8.2) g/dL Albumin (3.5-5.0) g/dL Urine Color Yellow Urine Appearance Clear (Clear) Urine pH 7.5 (5.0-8.0) Ur Specific [place] 1.014 (1.001-1.035) Urine Protein Negative (Negative) Urine Glucose (UA) Negative (Negative) Urine Ketones Negative (Negative) Urine Blood Negative (Negative) Urine Nitrite Negative (Negative) Urine Bilirubin Negative (Negative) Urine Urobilinogen <2.0 (<2.0) mg/dL Ur Leukocyte Esterase Negative (Negative) Disposition Clinical Impression: Back pain Disposition: HOME SELF-CARE Condition: Good Instructions: Acute Low Back Pain (ED) Additional Instructions: Patient denies follow-up with primary care provider. Take medication as prescribed. Return to emergency department if any alarming signs or symptoms occur. Prescriptions: Cyclobenzaprine [Flexeril] 10 mg PO TID #12 tab Dexamethasone 0.75 mg PO DAILY #12 tab Is patient prescribed a controlled substance at d/c from ED?: No When asked, does pt state using other controlled substances?: No If prescribed controlled substance>3 days was MAPS reviewed?: No If opioid is for acute pain is fill amount 7 days or less?: No If Rx opioid, was Start Talking consent form obtained?: No Referrals: Edi Pitts DO [Primary Care Provider] - 1-2 days Time of Disposition: 11:00
[2018-05-18 09:07] LABS: Appearance,Urine Clear (Clear); Bilirubin,Urine Negative (Negative); Blood,Urine Negative (Negative); Color,Urine Yellow; Glucose,Urine (UA) Negative (Negative); Ketones,Urine Negative (Negative); Leukocyte Esterase,Urine Negative (Negative); Nitrite,Urine Negative (Negative); PH, Urine 7.5 (5.0-8.0); Protein,Urine Negative (Negative); Specific Gravity,Urine 1.014 (1.001-1.035); Urobilinogen,Urine <2.0 mg/dL (<2.0)
[2018-05-18 09:18] LABS: ALT 36 U/L (9-52); AST 24 U/L (14-36); Albumin 4.1 g/dL (3.5-5.0); Alkaline Phosphatase 65 U/L (38-126); Anion Gap 9 mmol/L; Blood Urea Nitrogen 14 mg/dL (7-17); Calcium 9.4 mg/dL (8.4-10.2); Carbon Dioxide 21 mmol/L (22-30); Chloride 106 mmol/L (98-107); Glucose 96 mg/dL (74-99); Potassium 4.4 mmol/L (3.5-5.1); Sodium 136 mmol/L (137-145); Total Bilirubin 0.4 mg/dL (0.2-1.3); Total Protein 6.9 g/dL (6.3-8.2)
[2018-05-18 09:29] LABS: Basophils % (A) 0 %; Eosinophils # (A) 0.2 k/uL (0-0.7); Eosinophils % (A) 2 %; HCT 40.9 % (34.0-46.0); HGB 13.4 gm/dL (11.4-16.0); Lymphocytes # (A) 0.8 k/uL (1.0-4.8); Lymphocytes % (A) 9 %; MCH 28.2 pg (25.0-35.0); MCHC 32.9 g/dL (31.0-37.0); MCV 85.6 fL (80.0-100.0); Monocytes # (A) 0.4 k/uL (0-1.0); Monocytes % (A) 4 %; Neutrophils # (A) 7.7 k/uL (1.3-7.7); Neutrophils % (A) 84 %; Platelet Count 276 k/uL (150-450); RBC 4.78 m/uL (3.80-5.40); RDW 12.7 % (11.5-15.5); WBC 9.2 k/uL (3.8-10.6)
--- NOTE | 2018-05-18 09:46 | XR ---
EXAMINATION TYPE: XR thoracic spine 2V DATE OF EXAM: 05/18/2018 COMPARISON: NONE HISTORY: Back pain Alignment is anatomic. There is no compression deformities. Vertebral body height and disc interspa shawn are maintained. Surgical clips in the right upper quadrant noted. IMPRESSION: 1. No acute abnormality.
--- NOTE | 2018-05-18 09:47 | XR ---
EXAM TYPE: LUMBAR SPINE X RAY SERIES COMPARISON: NONE HISTORY: Back pain TECHNIQUE: Three views are submitted. FINDINGS: Alignment is anatomic. The pedicles are intact. The transverse processes are intact. There is no s pondylolysis or spondylolisthesis. IMPRESSION: 1. No acute process. If symptoms persist or there is concern for disc herniation correlate with MRI.
--- NOTE | 2018-05-18 09:48 | XR ---
EXAMINATION TYPE: XR KUB DATE OF EXAM: 05/18/2018 COMPARISON: NONE HISTORY: Pain TECHNIQUE: One view abdominal series FINDINGS: The osseous structures are intact. The bowel gas pattern is nonspecific. There is a prominent small bowel loops with air-fluid level in the midabdomen. Surgical clips in the gallbladder fossa noted. r is seen distally in the colon. Lung bases are clear. IMPRESSION: 1. Nonspecific abdomen. Prominent small bowel loop in the mid abdomen with air-fluid levels seen wit h enteritis or localized ileus. Correlate clinically.
[2018-05-18 11:28] VITALS: BP 121/61; PULSE 56; TEMP 97
== END 2018-05-18 11:20 | disposition home or self-care (01) ==
LOC: EC 08:22
DX: M54.5 Low back pain (principal); M54.2 Cervicalgia; R51 Headache; R10.9 Unspecified abdominal pain; R50.9 Fever, unspecified; J45.909 Unspecified asthma, uncomplicated; K21.9 Gastro-esophageal reflux disease without esophagitis; F17.200 Nicotine dependence, unspecified, uncomplicated; Z87.19 Personal history of other diseases of the digestive system; Z86.69 Personal history of other diseases of the nervous system and sense organs; Z90.49 Acquired absence of other specified parts of digestive tract; Z98.890 Other specified postprocedural states; Z88.0 Allergy status to penicillin; Z88.1 Allergy status to other antibiotic agents; Z88.2 Allergy status to sulfonamides; Z91.048 Other nonmedicinal substance allergy status; X50.0XXA Overexertion from strenuous movement or load, initial encounter
CPT/HCPCS: 99284; 96374; 96375 ×3; 96361; 36415; 80053; 83605; 85025; 81003; 87040; 87086; 72070; 72100; 74018; J1200; J2360; J2765; J1885

== ENCOUNTER 2018-10-05 09:30 | Day surgery (SDC) | payer OTHER ==
[2018-10-05 09:50] VITALS: RESP 16; TEMP 97.5
[2018-10-05] MEDS ORDERED: LACTATED RINGERS 1,000 ML IV ONE (10:06)
[2018-10-05] MEDS ORDERED: LIDOCAINE 1% INJ 10MG/ML (20 ML MDV) ONE (10:30)
[2018-10-05] MEDS ORDERED: PROPOFOL 10 MG/ML 20 ML VIAL IV ONE (10:30)
--- NOTE | 2018-10-05 10:40 | P.PCN ---
Date of Procedure: 10/05/18 Description of Procedure: PREOPERATIVE DIAGNOSIS: Gastroesophageal reflux disease. Previous history Evelyn fundoplasty POSTOPERATIVE DIAGNOSIS: Gastroesophageal reflux disease. Previous history Evelyn fundoplasty Gastritis. Diaphragmatic hiatal hernia, recurrent OPERATION: Esophagogastroduodenoscopy with biopsies along antrum. SURGEON: Myesha Lutz MD ANESTHESIA: MAC. INDICATIONS: The patient is a 28-year-old female who presents with a history of reflux disease. Benefits and risks of the procedure were described. Informed consent was obtained. DESCRIPTION: The patient was brought into the endoscopy suite and laid in the left lateral decubitus position. An Olympus gastroscope was passed along the posterior oropharynx down to the distal esophagus where the squamocolumnar junction was encountered at 38 cm from the incisors. The stomach was entered and no bile reflux was found. Additional findings are listed below. Biopsies with cold forceps were obtained of the antrum. The first through third portion of the duodenum was examined and unremarkable. Retroflexion of the scope confirmed Hill grade 1 lower esophageal valve. The squamocolumnar junction demonstrated LA grade A erosive esophagitis. The stomach was desufflated. The patient tolerated the procedure well. FINDINGS: Squamocolumnar junction 38 cm from the incisors. Diaphragmatic hiatus at 39 cm. Hiatal hernia, 1 cm Hill grade 1 lower esophageal valve. LA grade A erosive esophagitis. No active duodenitis. Chronic gastritis with recent bleed RECOMMENDATIONS: Upper endoscopy as needed. Plan - Discharge Summary Discharge Rx Participant: No New Discharge Prescriptions: No Action Albuterol Inhaler [Ventolin Hfa Inhaler] 1 - 2 puff INHALATION Q6HR PRN PRN Reason: Shortness Of Breath Acetaminophen Tab [Tylenol Tab] 325 - 650 mg PO Q4H Discharge Medication List Acetaminophen Tab [Tylenol Tab] 325 - 650 mg PO Q4H 10/25/17 [History] Albuterol Inhaler [Ventolin Hfa Inhaler] 1 - 2 puff INHALATION Q6HR PRN [History]
[2018-10-05 11:21] VITALS: BP 120/77; PULSE 56
== END 2018-10-05 11:29 | disposition home or self-care (01) ==
LOC: ORWHC2ENDO 09:30
PROVIDERS: ATTEND Surgery Plastic and Reconstructive Surgery
DX: K29.51 Unspecified chronic gastritis with bleeding (principal); K44.9 Diaphragmatic hernia without obstruction or gangrene; K22.10 Ulcer of esophagus without bleeding; K21.0 Gastro-esophageal reflux disease with esophagitis; J45.909 Unspecified asthma, uncomplicated; F17.210 Nicotine dependence, cigarettes, uncomplicated; Z88.1 Allergy status to other antibiotic agents; Z88.0 Allergy status to penicillin; Z88.2 Allergy status to sulfonamides; Z88.8 Allergy status to other drugs, medicaments and biological substances; Z90.710 Acquired absence of both cervix and uterus
CPT/HCPCS: 88305; 43239; J2001; J2704

== ENCOUNTER → 2018-11-11 | Outpatient (CLI) | payer OTHER ==
--- NOTE | 2018-11-11 11:01 | FL ---
EXAMINATION TYPE: FL barium swallow DATE OF EXAM: 11/11/2018 COMPARISON: None HISTORY: Hiatal hernia history of Pool fundoplication TECHNIQUE: A single contrast UGI study is performed. FINDINGS: Esophagus dilates to normal caliber has normal contour to the gastroesophageal junction. Gastroesopha geal junction opens to normal caliber. Small amount of contrast filling the Pool fundoplication wra p is evident. In the horizontal drinking position there is complete stripping of the esophageal bolus. Fluoroscopy time: 0.4 minutes Images: 27 IMPRESSIONS: 1. Normal esophagram post Pool fundoplication. No stenosis or hesitancy evident.
== END | disposition home or self-care (01) ==
LOC: RADFLWHC 09:36
PROVIDERS: ATTEND Surgery Plastic and Reconstructive Surgery
DX: K44.9 Diaphragmatic hernia without obstruction or gangrene (principal)
CPT/HCPCS: 74220

== ENCOUNTER 2019-03-02 12:45 | Inpatient (IN) | payer OTHER ==
[2019-02-21 08:38] VITALS: BMI 32.9
--- NOTE | 2019-03-02 08:08 | P.GSHP ---
History of Present Illness H&P Date: 03/02/19 CHIEF COMPLAINT: Paraesophageal hiatal hernia with gastroesophageal reflux disease. HISTORY OF PRESENT ILLNESS: The patient is a 28-year-old female who presents with paraesophageal hiatal hernia. She has completed an esophageal manometry including upper endoscopy workup. Now she presents for surgical intervention. PAST MEDICAL HISTORY: Please see list. PAST SURGICAL HISTORY: Please see list. MEDICATIONS: Please see list. ALLERGIES: Please see list. SOCIAL HISTORY: No illicit drug use FAMILY HISTORY: No reports of Crohn disease or ulcerative colitis. REVIEW OF ORGAN SYSTEMS: CONSTITUTIONAL: No reports of fevers or chills. GI: Denies any blood in stools or constipation. PHYSICAL EXAM: VITAL SIGNS: Stable GENERAL: Well-developed pleasant and in no acute distress. HEENT: No scleral icterus. Extraocular movements grossly intact. Moist buccal mucosa. NECK: Supple without lymphadenopathy. CHEST: Unlabored respirations. Equal bilateral excursions. CARDIOVASCULAR: Regular rate and rhythm. Distal 2+ pulses. ABDOMEN: Soft, nondistended. No peritoneal signs. MUSCULOSKELETAL: No clubbing, cyanosis, or edema. SKIN: Well-perfused. Good skin turgor. MANOMETRY: Shows no evidence of achalasia or scleroderma. ASSESSMENT: 1. Diaphragmatic paraesophageal hiatal hernia with severe gastroesophageal reflux disease. PLAN: 1. Recommend proceeding with a robotic paraesophageal hiatal hernia with possible mesh. 2. Benefits and risks of surgical intervention was discussed including possibility of open technique. 3. Inpatient hospitalization recommended of 2 nights 4. DVT prophylaxis. 5. Antibiotic prophylaxis. 6. She has also completed a very low caloric high-protein diet to address underlying hepatomegaly. Past Medical History Past Medical History: Asthma, GERD/Reflux Additional Past Medical History / Comment(s): hiatal hernia, MIGRAINES, ulcer, History of Any Multi-Drug Resistant Organisms: None Reported Past Surgical History: Section, Cholecystectomy, Hernia Repair, Hysterectomy, Tubal Ligation Additional Past Surgical History / Comment(s): sonu fundoplication,benign abscess removed from neck, exploratory laproscopy. NERVE BLOCK FOR MIGRAINE. Past Anesthesia/Blood Transfusion Reactions: Motion Sickness, Postoperative Nausea & Vomiting (PONV) Additional Past Anesthesia/Blood Transfusion Reaction / Comment(s): "dry heaves, states unable to vomit r/t hiatal hernia sx" STATES SHE WOKE UP DURING CHOLESCYSTECTOMY Past Psychological History: No Psychological Hx Reported Smoking Status: Current every day smoker Past Alcohol Use History: None Reported Additional Past Alcohol Use History / Comment(s): smokes approx 5 cigarettes daily, from age 13 Past Drug Use History: None Reported - Past Family History Mother Family Medical History: No Reported History Father Additional Family Medical History / Comment(s): multiple sclerosis Medications and Allergies Home Medications Medication Instructions Recorded Confirmed Type Albuterol Inhaler [Ventolin Hfa 1 - 2 puff INHALATION Q6HR PRN 10/25/17 02/21/19 History Inhaler] Loratadine-Pseudoeph 10-240 mg 1 each PO HS 01/25/19 02/21/19 History [Claritin-D 24 Hr] Allergies Allergy/AdvReac Type Severity Reaction Status Date / Time amoxicillin Allergy Anaphylaxis Verified 02/21/19 08:35 barium sulfate Allergy Rash/Hives Verified 02/21/19 08:35 cephalexin [From Keflex] Allergy Anaphylaxis Verified 02/21/19 08:35 clindamycin Allergy Anaphylaxis Verified 02/21/19 08:35 doxycycline Allergy Anaphylaxis Verified 02/21/19 08:35 erythromycin base Allergy Anaphylaxis Verified 02/21/19 08:35 [Erythromycin Base] Penicillins Allergy Anaphylaxis Verified 02/21/19 08:35 Sulfa (Sulfonamide Allergy Anaphylaxis Verified 02/21/19 08:35 Antibiotics) sulfamethoxazole Allergy Anaphylaxis Verified 02/21/19 08:35 [From Bactrim] trimethoprim [From Bactrim] Allergy Anaphylaxis Verified 02/21/19 08:35
[~2019-03-02 12:45] MED LIST changes: +HEPARIN SODIUM,PORCINE 5,000 UNIT/ML 1 ML VIAL SQ ONE; +LEVOFLOXACIN 500MG-D5W PMX 500 MG in DEXTROSE/WATER 1 100ML.BAG IVPB ONE; +MIDAZOLAM 2 MG/2 ML VIAL IV PRN; -ONDANSETRON 4 MG/2 ML VIAL IVP ONE; -Pre Op ABX Message 1 EACH MISC MISCELLANE ONE; +VANCOMYCIN 1,250 MG in SODIUM CHLORIDE 0.9% 250 ML IVPB ONE
[2019-03-02] MEDS: ONDANSETRON 4 MG/2 ML VIAL IVP ONE ×2 (14:52→20:04)
[2019-03-02 14:58] LABS: Basophils # (A) 0.1 k/uL (0-0.2); Basophils % (A) 1 %; Eosinophils # (A) 0.3 k/uL (0-0.7); Eosinophils % (A) 3 %; HCT 39.7 % (34.0-46.0); HGB 13.6 gm/dL (11.4-16.0); Lymphocytes # (A) 2.9 k/uL (1.0-4.8); Lymphocytes % (A) 30 %; MCH 28.9 pg (25.0-35.0); MCHC 34.2 g/dL (31.0-37.0); MCV 84.4 fL (80.0-100.0); Mean Platelet Volume 8.3; Monocytes # (A) 0.4 k/uL (0-1.0); Monocytes % (A) 4 %; Neutrophils # (A) 5.8 k/uL (1.3-7.7); Neutrophils % (A) 60 %; Platelet Count 303 k/uL (150-450); RBC 4.71 m/uL (3.80-5.40); RDW 13.2 % (11.5-15.5); WBC 9.5 k/uL (3.8-10.6)
[2019-03-02 15:07] LABS: ALT 22 U/L (9-52); AST 19 U/L (14-36); Albumin 4.6 g/dL (3.5-5.0); Alkaline Phosphatase 80 U/L (38-126); Anion Gap 11 mmol/L; Blood Urea Nitrogen 13 mg/dL (7-17); Calcium 10.1 mg/dL (8.4-10.2); Carbon Dioxide 23 mmol/L (22-30); Chloride 107 mmol/L (98-107); Glucose 79 mg/dL (74-99); Potassium 4.1 mmol/L (3.5-5.1); Sodium 141 mmol/L (137-145); Total Bilirubin 0.7 mg/dL (0.2-1.3); Total Protein 7.8 g/dL (6.3-8.2)
[2019-03-02] MEDS ORDERED: MIDAZOLAM 2 MG/2 ML VIAL IVP ONE (15:20)
[2019-03-02] MEDS ORDERED: GLYCOPYRROLATE 0.2 MG/ML 2 ML VIAL ONE (16:47)
[2019-03-02] MEDS ORDERED: MIDAZOLAM 2 MG/2 ML VIAL ONE (16:47)
[2019-03-02] MEDS ORDERED: ePHEDrine SULFATE/0.9% NACL/PF 50 MG/5 ML SYRINGE IV ONE (16:47)
[2019-03-02] MEDS ORDERED: ROCURONIUM BROMIDE 10 MG/ML 10 ML VIAL IV ONE (16:47)
[2019-03-02] MEDS ORDERED: fentaNYL (PF) 50 MCG/ML 2 ML AMP ONE (16:47)
[2019-03-02] MEDS ORDERED: LIDOCAINE 1% INJ 10MG/ML (20 ML MDV) ONE (16:47)
[2019-03-02] MEDS ORDERED: PROPOFOL 10 MG/ML 20 ML VIAL IV ONE (16:47)
[2019-03-02] MEDS ORDERED: NEOSTIGMINE 1 MG/ML 10 ML VIAL ONE (16:47)
[2019-03-02] MEDS ORDERED: BUPIVACAINE-EPI 0.5%-1:200,000 10 ML VIAL SQ ONE (17:08)
[2019-03-02] MEDS ORDERED: LACTATED RINGERS 1,000 ML IV ONE (19:43)
[2019-03-02] MEDS ORDERED: diphenhydrAMINE 50 MG/ML 1 ML VIAL IVP PRN (20:03)
[2019-03-02] MEDS ORDERED: NALOXONE 0.4 MG/ML 1 ML VIAL IV PRN (20:03)
[2019-03-02] MEDS: HYDROmorphone 0.5 MG/0.5 ML SYRINGE IVP PRN ×2 (20:08→20:19)
[2019-03-02] MEDS ORDERED: D5-0.45% NACL WITH KCL 20MEQ/L 1,000 ML IV SCH (20:15)
--- NOTE | 2019-03-02 20:24 | P.OP ---
Date of Procedure: 03/02/19 Description of Procedure: SURGEON: QUINN NG MD PREOPERATIVE DIAGNOSES: 1. Gastroesophageal reflux disease. 2. Paraesophageal hiatal hernia, midline, recurrent 3. History of previous Evelyn fundoplasty 4. Epigastric abdominal pain 5. Chronic abdominal distention 6. Dysphagia 7. Asthma 8. Postop Nausea and vomiting 9. Multiple antibiotic ALLERGIES 10. Migraine headaches 12. Obesity due to excess calories, BMI 33.0 POSTOPERATIVE DIAGNOSES: 1. Gastroesophageal reflux disease. 2. Paraesophageal hiatal hernia, midline, recurrent, 4 x 3 cm 3. History of previous Evelyn fundoplasty 4. Epigastric abdominal pain 5. Chronic abdominal distention 6. Dysphagia 7. Asthma 8. Postop Nausea and vomiting 9. Multiple antibiotic ALLERGIES 10. Migraine headaches 12. Obesity due to excess calories, BMI 33.0 OPERATION: 1. Robotic-assisted da Loren Xi laparoscopic takedown of Evelyn fundoplasty 2. Robotic-assisted da Loren Xi laparoscopic extensive lysis of adhesions over 1.5 hours for perigastric adhesions 3. Robotic-assisted da Loren Xi laparoscopic reduction and repair of recurrent incarcerated paraesophageal hiatal hernia, 4 x 3 cm, with Preston Biopatch A 8 x 8 cm. 4. Intraoperative esophagogastroduodenoscopy Implants: Preston Biopatch A 8 x 8 cm Anesthesia: GETA, local Estimated Blood Loss (ml): 10 Pathology: none sent Condition: stable Disposition: floor COMPLICATIONS: None. Operative Findings: 1. Recurrent incarcerated paraesophageal hiatal hernia, 4 x 3 cm, type III 2. Severe peritoneal adhesions perigastric with incarcerated hiatal hernia with previous Evelyn fundoplasty requiring over 1.5 hours 3. Squamocolumnar junction at 36 cm without injury to esophagus or stomach. 4. Division and take down of fundoplasty using vessel sealer 5. More than 20% of stomach incarcerated into chest reduced into abdominal cavity 6. EGD demonstrates no esophageal injury or full-thickness gastrotomy 7. Hill grade 1+ upon completion of procedure 8. Over 3 cm intra-abdominal esophageal length obtained. INDICATIONS: The patient is a 28-year-old female who presents with epigastric abdominal pain, gastroesophageal reflux and a symptomatic diaphragmatic hiatal hernia. Preoperative workup including upper endoscopy demonstrated recurrent hiatal hernia. She completed an esophageal manometry. Given the severity of her symptoms including chronic gas bloat and distention, she had elected for surgical intervention. Benefits and risks including bleeding, infection, recurrence, dysphagia, injury to the lung, need for further surgery was described at length. Informed consent was obtained. DESCRIPTION: The patient was brought into the operating room and placed in supine position. Preoperatively she had received heparin subcutaneously for DVT prophylaxis. Levaquin was used for antibiotic prophylaxis as she has anaphylaxis to Clindamycin and Penicillin including Keflex. After general induction, the abdomen was prepped and draped in standard sterile fashion. Ioban draping was placed along the abdomen. A timeout protocol was confirmed with the surgical team, for which the patient's name, procedure to be performed including DVT prophylaxis with bilateral SCDs, and preoperative antibiotics were also confirmed. Robotic da Loren Xi system was prepped and primed. At 15 cm from the xiphoid to just below the umbilicus, proposed port sites were marked with indelible marker along the left axillary line, left mid-clavicular line with each ports were marked 10 cm from each other. A 5 mm 0 degrees laparoscopic trocar entry was performed along the left upper quadrant. The abdomen was insufflated to 15 mmHg pressure she tolerated well. Diagnostic laparoscopy demonstrated no injury to bowel, viscera, or mesentery. No injury had occurred to the small bowel or viscera. Along the hiatus, moderate perigastric adhesions were found from the previous fundoplasty. Next, one 8 mm robotic port was placed along the right upper abdomen. An 8-mm port was were placed along the left lateral abdominal wall. The camera 8-mm port was maintained along the epigastrium. A 12 mm port was placed along the left upper abdominal wall after exchanging the 5 mm port. Please note that the ports were placed at least 20 cm away from the target anatomy. Care was taken to check that each robotic arm were safely away from collision with the bed or the patient. At the epigastrium, a medium sized Greg liver retractor was placed under direct visualization with the [employer] Rehabilitative Services placed under the right shoulder of the patient. The additional third robotic arm was used. The patient was repositioned in reverse Trendelenburg position at 16-degrees after lowering the bed. The robot was docked above the left side of the patient. Using a grasper for arm 3, a grasper for arm 1, including vessel sealer for arm 4, the robotic system was docked and primed as described. Instruments were interchanged by the nutritional assistant. I had sat at the console. The phrenoesophageal ligament had moderate scarring where the distal esophagus was mobilized circumferentially. Care was taken to avoid any injury to the esophagus. The slipped Evelyn and hiatal hernia sac was incarcerated into the mediastinum. Moderate and careful dissection was performed to identify the initial sutures from the prior hiatal hernia repair and fundoplication. A retained hernia sac was divided to allow complete mobilization and freeing of the distal esophagus into the abdominal cavity. Care was taken to avoid any gastrotomy to the incarcerated upper pole of the stomach including takedown of the Evelyn fundoplasty. Extensive lysis of adhesions went more than 1.5 hours for extended dissection of the adherent stomach including the mediastinum to the hernia sac. The measured defect was consistent with 4 cm axial length and 3 cm in width, type III paraesophageal type. To prevent any injury to the stomach or esophagus, intraoperative EGD was used to monitor the distal esophageal dissection. Once the hiatus and crura was dissected, 2-0 VLOC suture was placed as a running suture to re-approximate the diaphragmatic hiatus posteriorly. To buttress the repair, a Preston Biopatch A was prepared along the back table and cut to reinforce the repair as an underlay. The mesh was placed along the crural repair posteriorly then cut in half and tagged using horizontal mattress sutures using 2-0 VLOC. I went to the head of the bed to perform intraoperative esophagogastro duodenoscopy. An Olympus gastroscope was passed through posterior oropharynx, where the GE junction was found just distal to the diaphragmatic hiatus. The esophagus squamocolumnar junction was at 36 cm from the incisors. Complete takedown of the Evelyn was confirmed. The stomach was entered. Chronic gastritis was found. No active LA grade A erosive esophagitis was identified. Retroflexion of the scope confirmed Hill grade 1+ lower esophageal valve. The stomach had been desufflated. No evidence of leaks were found or mucosal defects of the esophagus or stomach. This concluded the endoscopic portion of the case. The robot was undocked from the patient. I re-scrubbed into the case. All instruments and pneumoperitoneum were evacuated from the abdominal cavity. Incisions were reapproximated using 4-0 Monocryl in an interrupted subcuticular fashion. All incisions were cleaned using dilute hydrogen peroxide. The 12-mm port site fascial defect was less than 8 mm in size. Liquid glue was applied to the skin. Local anesthetic was infiltrated in all wounds for postop analgesia. Multiple intra-abdominal films were obtained. At the end of the procedure, needle, sponge, and instrument count was verified correct by the certified surgical tech/first assistant. The patient had tolerated the procedure well and was taken to the postanesthesia unit in stable condition. Intraoperative films were reviewed with the patient's family who were pleased with the level of care. Console time 114 minutes
[2019-03-02] MEDS: 0.9% NACL WITH KCL 20 MEQ/L 1,000 ML IV SCH (21:20)
[2019-03-02] MEDS: HYDROmorphone 1 MG/ML 1 ML SYRINGE IVP PRN (22:56)
[2019-03-02] MEDS: SIMETHICONE 40 MG/0.6 ML DROPS 2,000 MG/30 ML BOTTLE PO SCH (23:00)
[2019-03-02] MEDS: HYOSCYAMINE ORAL DROPS 1.875 MG/15 ML BOTTLE PO SCH (23:09)
[2019-03-02] MEDS: METOCLOPRAMIDE 5 MG/ML 2 ML VIAL IVP SCH (23:10)
[2019-03-02] MEDS: DEXAMETHASONE SOD PHOSPHATE 4 MG/ML 1 ML VIAL IV SCH (23:12)
[2019-03-02] MEDS: ONDANSETRON 4 MG/2 ML VIAL IVP SCH (23:13)
[2019-03-03] MEDS: 0.9% NACL WITH KCL 20 MEQ/L 1,000 ML IV SCH (04:26)
[2019-03-03] MEDS: HYDROmorphone 1 MG/ML 1 ML SYRINGE IVP PRN (04:50)
[2019-03-03] MEDS: HYOSCYAMINE ORAL DROPS 1.875 MG/15 ML BOTTLE PO SCH ×2 (06:15→11:36)
[2019-03-03] MEDS: DEXAMETHASONE SOD PHOSPHATE 4 MG/ML 1 ML VIAL IV SCH ×2 (06:15→12:31)
[2019-03-03] MEDS: METOCLOPRAMIDE 5 MG/ML 2 ML VIAL IVP SCH ×3 (06:15→12:13)
[2019-03-03] MEDS: ONDANSETRON 4 MG/2 ML VIAL IVP SCH ×2 (06:15→12:24)
[2019-03-03] MEDS: SIMETHICONE 40 MG/0.6 ML DROPS 2,000 MG/30 ML BOTTLE PO SCH ×2 (06:16→11:34)
[2019-03-03 07:58] LABS: Basophils % (A) 0 %; Eosinophils # (A) 0.1 k/uL (0-0.7); Eosinophils % (A) 1 %; HCT 35.3 % (34.0-46.0); HGB 12.4 gm/dL (11.4-16.0); Lymphocytes # (A) 0.8 k/uL (1.0-4.8); Lymphocytes % (A) 6 %; MCH 29.9 pg (25.0-35.0); MCHC 35.2 g/dL (31.0-37.0); Mean Platelet Volume 7.2; Monocytes # (A) 0.5 k/uL (0-1.0); Monocytes % (A) 4 %; Neutrophils # (A) 11.9 k/uL (1.3-7.7); Neutrophils % (A) 89 %; Platelet Count 267 k/uL (150-450); RBC 4.16 m/uL (3.80-5.40); RDW 12.8 % (11.5-15.5); WBC 13.3 k/uL (3.8-10.6)
[2019-03-03] MEDS ORDERED: 0.9% NACL WITH KCL 20 MEQ/L 1,000 ML IV SCH (08:00)
[2019-03-03 08:17] LABS: Anion Gap 7 mmol/L; Blood Urea Nitrogen 12 mg/dL (7-17); Calcium 9.7 mg/dL (8.4-10.2); Carbon Dioxide 23 mmol/L (22-30); Chloride 108 mmol/L (98-107); Magnesium 1.7 mg/dL (1.6-2.3); Phosphorus 3.6 mg/dL (2.5-4.5); Potassium 4.7 mmol/L (3.5-5.1); Sodium 138 mmol/L (137-145)
[2019-03-03] MEDS: ALBUTEROL NEBULIZED 2.5 MG/3 ML INHALATION SCH ×2 (08:23→09:55)
[2019-03-03] MEDS ORDERED: Magnesium Replacement Protocol 1 EACH MISC MISCELLANE PRN (08:28)
[2019-03-03] MEDS: HYDROcodone/APAP 15 ML SOLUTION PO PRN ×2 (08:57→11:38)
[2019-03-03] MEDS ORDERED: ENOXAPARIN 40 MG/0.4 ML SYRINGE SQ SCH (09:00)
[2019-03-03] MEDS ORDERED: PANTOPRAZOLE 40 MG/10 ML VIAL IV SCH (09:00)
--- NOTE | 2019-03-03 09:08 | FL ---
EXAMINATION TYPE: FL esophagus cervic/pharynx DATE OF EXAM: 03/03/2019 LIMITED UGI-ESOPHAGRAM: CLINICAL HISTORY: Pool fundoplication, revision TECHNIQUE: Limited esophagram is performed utilizing 20 oz of Omnipaque 350. A total of 36 seconds o f fluoroscopic time was utilized during procedure. 10 images were obtained. FINDINGS: There is a moderate amount of free air within the air pocket measuring 9.2 x 0.8 cm on the right diaphragm and approximately 2.7 x 1.2 cm on the left diaphragm adjacent to the stomach. Following contrast administration no extravasation of contrast is identified. Water-soluble contrast transits through the region of the patient's Pool fundoplication without hesitancy. IMPRESSION: 1. No extravasation of contrast is evident on this examination. 2. Moderate amount of free air is present.
[2019-03-03] MEDS: MAGNESIUM SULFATE-D5W PMX 1 GM in DEXTROSE/WATER 1 100ML.BAG IVPB SCH ×2 (09:22→10:57)
[2019-03-03 11:56] VITALS: BP 127/71; PULSE 65; RESP 16; TEMP 97
--- NOTE | 2019-03-03 13:57 | P.DS ---
Providers Date of admission: 03/02/19 13:58 Expected date of discharge: 03/03/19 Attending physician: Myesha Lutz Primary care physician: Edi Pitts - Discharge Diagnosis(es) (1) Dysphagia Status: Acute (2) Epigastric abdominal pain Status: Acute (3) Gastroesophageal reflux Status: Acute (4) Hiatal hernia without gangrene and obstruction Status: Acute Hospital Course: POSTOPERATIVE DIAGNOSES: 1. Gastroesophageal reflux disease. 2. Paraesophageal hiatal hernia, midline, recurrent, 4 x 3 cm 3. History of previous Evelyn fundoplasty 4. Epigastric abdominal pain 5. Chronic abdominal distention 6. Dysphagia 7. Asthma 8. Postop Nausea and vomiting 9. Multiple antibiotic ALLERGIES 10. Migraine headaches 12. Obesity due to excess calories, BMI 33.0 INDICATIONS: The patient is a 28-year-old female who presents with epigastric a bdominal pain, gastroesophageal reflux and a symptomatic diaphragmatic hiatal hernia. Preoperative workup including upper endoscopy demonstrated recurrent hiatal hernia. She completed an esophageal manometry. Given the severity of her symptoms including chronic gas bloat and distention, she had elected for surgical intervention. Post procedure, her pre-existing epigastric pain and dysphagia resolved. She is tolerating liquids. Discharge diet reviewed. Esophagram reviewed. She will follow up in the office in 5 days Pertinent Studies: Esophagram without leak Procedures: OPERATION: 1. Robotic-assisted da Loren Xi laparoscopic takedown of Evelyn fundoplasty 2. Robotic-assisted da Loren Xi laparoscopic extensive lysis of adhesions over 1.5 hours for perigastric adhesions 3. Robotic-assisted da Loren Xi laparoscopic reduction and repair of recurrent incarcerated paraesophageal hiatal hernia, 4 x 3 cm, with [place]leaf Biopatch A 8 x 8 cm. 4. Intraoperative esophagogastroduodenoscopy Implants: Greenleaf Biopatch A 8 x 8 cm Anesthesia: GETA, local Estimated Blood Loss (ml): 10 Pathology: none sent Condition: stable Disposition: floor COMPLICATIONS: None. Operative Findings: 1. Recurrent incarcerated paraesophageal hiatal hernia, 4 x 3 cm, type III 2. Severe peritoneal adhesions perigastric with incarcerated hiatal hernia with previous Evelyn fundoplasty requiring over 1.5 hours 3. Squamocolumnar junction at 36 cm without injury to esophagus or stomach. 4. Division and take down of fundoplasty using vessel sealer 5. More than 20% of stomach incarcerated into chest reduced into abdominal cavity 6. EGD demonstrates no esophageal injury or full-thickness gastrotomy 7. Hill grade 1+ upon completion of procedure 8. Over 3 cm intra-abdominal esophageal length obtained. Patient Condition at Discharge: Stable Plan - Discharge Summary Discharge Rx Participant: Yes New Discharge Prescriptions: New Bisacodyl [Dulcolax] 5 mg PO DAILY PRN #10 tablet. PRN Reason: Constipation Simethicone 40 mg/0.6 ml Drops [Mylicon Drops] 40 mg PO PCHS PRN #30 ml PRN Reason: Gas HYDROcodone/APAP [Bol[place] Elixir 7.5-325Mg/15Ml] 15 ml PO Q6H PRN #180 solution PRN Reason: Pain Ondansetron Odt [Zofran Odt] 4 mg PO Q8HR PRN #9 tab PRN Reason: Nausea Continue Albuterol Inhaler [Ventolin Hfa Inhaler] 1 - 2 puff INHALATION RT-QID PRN PRN Reason: Shortness Of Breath Loratadine-Pseudoeph 10-240 mg [Claritin-D 24 Hour] 1 tab PO HS Discharge Medication List Albuterol Inhaler [Ventolin Hfa Inhaler] 1 - 2 puff INHALATION RT-QID PRN 10/25/17 [History] Loratadine-Pseudoeph 10-240 mg [Claritin-D 24 Hour] 1 tab PO HS 01/25/19 [History] Bisacodyl [Dulcolax] 5 mg PO DAILY PRN #10 tablet. 03/03/19 [Rx] HYDROcodone/APAP [Bol[place] Elixir 7.5-325Mg/15Ml] 15 ml PO Q6H PRN #180 solution 03/03/19 [Rx] Ondansetron Odt [Zofran Odt] 4 mg PO Q8HR PRN #9 tab 03/03/19 [Rx] Simethicone 40 mg/0.6 ml Drops [Mylicon Drops] 40 mg PO PCHS PRN #30 ml 03/03/19 [Rx] Follow up Appointment(s)/Referral(s): Myesha Lutz MD [STAFF PHYSICIAN] - 03/07/19 3:15 pm Patient Instructions/Handouts: Laparoscopic Hiatal Hernia Repair (DC) Activity/Diet/Wound Care/Special Instructions: NO lifting over 4 pounds in 4 weeks. May shower. No bathtub soaks. No straws or carbonated beverages. Liquid diet only. Take MOM for constipation. ( follow diet given to you by Dr Lutz) fluids encouraged. Call office for any fever, chills, increased pain not covered by pain meds, increased redness or discolored drainage from puncture sites or any concerns. continue to use Incentive spirometery at home. last received Bolton elixer at 1140 last received zofran at 1225 last received mylicon at 1130 Discharge Disposition: HOME SELF-CARE
[2019-03-04] MEDS ORDERED: BISACODYL 5 MG TABLET.DR PO PRN (08:00)
== END 2019-03-03 14:11 | disposition home or self-care (01) | DRG 327 ==
LOC: 2ORMAIN 13:58 → 6PED 19:46
PROVIDERS: ADMIT Surgery Plastic and Reconstructive Surgery; ATTEND Surgery Plastic and Reconstructive Surgery
PROC: 0DN64ZZ Release Stomach, Percutaneous Endoscopic Approach (ICD-10-PCS; 2019-03-02)
PROC: 0BUT4JZ Supplement Diaphragm with Synthetic Substitute, Percutaneous Endoscopic Approach (ICD-10-PCS; 2019-03-02)
PROC: 8E0W4CZ Robotic Assisted Procedure of Trunk Region, Percutaneous Endoscopic Approach (ICD-10-PCS; 2019-03-02)
PROC: 0DQ44ZZ Repair Esophagogastric Junction, Percutaneous Endoscopic Approach (ICD-10-PCS; principal; 2019-03-02 15:25)
DX: K91.89 Other postprocedural complications and disorders of digestive system (principal); K44.0 Diaphragmatic hernia with obstruction, without gangrene; K21.9 Gastro-esophageal reflux disease without esophagitis; J45.909 Unspecified asthma, uncomplicated; F17.210 Nicotine dependence, cigarettes, uncomplicated; R13.10 Dysphagia, unspecified; E66.09 Other obesity due to excess calories; K29.50 Unspecified chronic gastritis without bleeding; G43.909 Migraine, unspecified, not intractable, without status migrainosus; R16.0 Hepatomegaly, not elsewhere classified; K66.0 Peritoneal adhesions (postprocedural) (postinfection); Z68.33 Body mass index [BMI] 33.0-33.9, adult; Z79.899 Other long term (current) drug therapy; Z90.710 Acquired absence of both cervix and uterus; Z90.49 Acquired absence of other specified parts of digestive tract; Z98.51 Tubal ligation status; Z88.1 Allergy status to other antibiotic agents; Z88.0 Allergy status to penicillin; Z88.2 Allergy status to sulfonamides; Z82.0 Family history of epilepsy and other diseases of the nervous system
CPT/HCPCS: 74210; 80051; 80053; 81025; 82310; 82565; 83735; 84100; 84520; 85025; 94640

== ENCOUNTER → 2019-09-05 | Outpatient (CLI) | payer OTHER ==
[2019-09-05 22:05] LABS: Total Protein,CSF 52 mg/dL (12-60)
[2019-09-05 23:06] LABS: CSF Tube Number 4
[2019-09-05 23:07] LABS: Appearance,CSF Clear; CSF Tube Volume 3; Nucleated Cells, CSF 0 u/L (0-5); Red Blood Cell,CSF 0 u/L (0-10)
[2019-09-07 12:49] LABS: IgG - CSF 3.2 mg/dL (0.0 - 3.4); IgG/Albumin Index (CSF) 0.49 (0.00 - 0.77)
== END | disposition home or self-care (01) ==
LOC: LABWHC1 09:03
PROVIDERS: ATTEND Nurse Practitioner Family
DX: G35 Multiple sclerosis (principal)
CPT/HCPCS: 36415; 82040; 82042; 82784; 83873; 83916; 84157; 87801; 89050

== ENCOUNTER → 2019-12-05 | Outpatient (CLI) | payer OTHER ==
--- NOTE | 2019-12-05 18:01 | US ---
EXAMINATION TYPE: US abdomen complete DATE OF EXAM: 12/05/2019 COMPARISON: NONE CLINICAL HISTORY: R10.814 Left lower quadrant abdominal tenderness. Umbilical hernia repair x 2019, G B removed. Umbilical bleeding. EXAM MEASUREMENTS: Liver Length: 13.9 cm Gallbladder Wall: cm CBD: 0.3 cm Spleen: 10.8 cm Right Kidney: 9.2 X 4.6 X 3.4 cm Left Kidney: 10.1 X 3.8 X 6.1 cm Pancreas: Obscured by bowel gas, Echogenic in appearance Liver: wnl Gallbladder: Surgically absent Evidence for sonographic Nielsen's sign: neg CBD: wnl Spleen: wnl Right Kidney: wnl Left Kidney: wnl Upper IVC: wnl Abd Aorta: No AAA visualized Umbilicus scanned- no fluid collection or lesion visualized IMPRESSION: There is cholecystectomy. No dilated ducts. No evidence of an umbilical mass.
--- NOTE | 2019-12-05 18:08 | US ---
EXAMINATION TYPE: US pelvic complete DATE OF EXAM: 12/05/2019 COMPARISON: NONE CLINICAL HISTORY: R10.814 Left lower quadrant abdominal tenderness. Partial hysterectomy, still has o varies TECHNIQUE: Transabdominal (TA). Transabdominal sonographic images of the pelvis were acquired. Date of LMP: Partial hysterectomy EXAM MEASUREMENTS: Right Ovary: 3.1 x 1.8 x 1.1 cm Left Ovary: 2.8 x 1.8 x 1.5 cm 1. Uterus: Surgically absent 2. Endometrium: Surgically absent 3. Right Ovary: wnl 4. Left Ovary: wnl 5. Bilateral Adnexa: wnl, no free fluid 6. Posterior cul-de-sac: wnl, no free fluid IMPRESSION: Normal ovaries. No pelvic mass. No free fluid.
== END | disposition home or self-care (01) ==
LOC: RADUSWWP 16:26
PROVIDERS: ATTEND Family Medicine
DX: R10.814 Left lower quadrant abdominal tenderness (principal); Z90.49 Acquired absence of other specified parts of digestive tract
CPT/HCPCS: 76700; 76856

== ENCOUNTER → 2019-12-06 | Outpatient (CLI) | payer OTHER ==
--- NOTE | 2019-12-06 13:44 | CT ---
EXAMINATION TYPE: CT abdomen pelvis wo con DATE OF EXAM: 12/06/2019 COMPARISON: 08/16/2015 HISTORY: 29-year-old female periumbilical pain and bleeding. CT DLP: 911 mGycm. Automated exposure control for dose reduction was used. TECHNIQUE: Contiguous axial scanning of the abdomen and pelvis without IV contrast. Coronal and sagit reynold reconstructions performed. FINDINGS: Heart normal size without pericardial effusion. Lung bases clear without pleural effusion. Noncontrast appearance of the liver, adrenal glands, kidneys, spleen, and pancreas appear within norm al limits. Cholecystectomy clips. No dilated small bowel, free fluid, or free air. A few borderline sized mesenteric lymph nodes measur ing up to 7 mm likely reactive/post inflammatory, unchanged from 2015. Tiny fatty hernia. No dilated small bowel, free fluid, or free air. Normal appendix. Mild to moderate stool burden. No pericolonic inflammatory change. A few scattered borderline sized mesenteric lymph nodes measuring up to 7 mm. Bladder not distended. Uterus surgically absent. Right ovary is visualized. Left ovary not clearly se en. No abnormal fluid collection in the pelvis or pelvic lymphadenopathy. Bones: No osseous destructive process. IMPRESSION: 1. Tiny fatty umbilical hernia. 2. No acute inflammatory process identified in the abdomen or pelvis to explain the patient's sympto ms. A few borderline sized mesenteric lymph nodes measuring up to 7 mm are unchanged from 2015 sugges ting a chronic postinflammatory etiology.
== END | disposition home or self-care (01) ==
LOC: RADCTMAIN 12:37
PROVIDERS: ATTEND Nurse Practitioner Family
DX: K42.9 Umbilical hernia without obstruction or gangrene (principal)
CPT/HCPCS: 74176

== ENCOUNTER → 2020-05-08 | Outpatient (CLI) | payer OTHER ==
--- NOTE | 2020-05-08 11:42 | FL ---
EXAMINATION TYPE: FL barium swallow DATE OF EXAM: 05/08/2020 CLINICAL HISTORY: Dysphasia TECHNIQUE: A double contrast esophagram is performed utilizing air and barium. A total of 34 second s of fluoroscopic time was utilized during procedure. 12 images submitted. COMPARISON: 03/03/2019 FINDINGS: The esophagus shows normal motility and emptying into the stomach. No evidence of hiatal h ernia or stricture noted. No significant gastroesophageal reflux was seen during real time performanc e of this study. Postoperative changes noted. IMPRESSION: No significant abnormality is seen to account for patient's symptoms.
== END | disposition home or self-care (01) ==
LOC: RADUSWWP 10:11
PROVIDERS: ATTEND Surgery Plastic and Reconstructive Surgery
DX: R13.10 Dysphagia, unspecified (principal)
CPT/HCPCS: 74220